=== PATIENT | male | born 1975 | race Caucasian/White ===

== ENCOUNTER 2018-06-21 21:04 | Emergency (ER) | payer MEDICAID, SELFPAY ==
[2018-06-21 21:07] VITALS: BP 140/92; PULSE 100; RESP 19; TEMP 36.7; O2SAT 98; BMI 27.9
--- NOTE | 2018-06-21 22:18 | ED.VIS.GEN ---
History of Present Illness Chief Complaint: Eye Problem Informant: Patient Onset: Today - JPTA Context: Sudden Onset - while sitting at the library Quality: pain, foreign body sensation Location: left eye Current Severity: Moderate Maximum Severity: Moderate Worsened by: nothing Relieved by: nothing Associated Symptoms: watering, making vision seem a little blurry Narrative: Patient wears glasses but no contacts. Unknown etiology of this as it occurred suddenly while he was sitting in a library. Past Medical History - Allergies and Home Meds Allergies/Adverse Reactions: Allergies No Known Allergies Allergy (Verified 06/21/18 21:05) Primary Care Physician: Josh Harrell MD [STAFF PHYSICIAN] - As Needed Past Medical History: None Smoking Status: Never smoker Drugs: None Review of Systems General: Denies: Chills, Fever Eyes: Reports: - - Left eye pain and watering. Denies: Diplopia Cardiovascular: Denies: Chest pain, Palpitations Respiratory: Denies: Dyspnea, Cough Gastrointestinal: Denies: Nausea, Vomiting Physical Exam Vital Signs/Narrative: Vital Signs Temp Pulse Resp BP Pulse Ox 06/21/18 21:07 98.1 F 100 19 H 140/92 H 98 Inital Vital Signs reviewed: Yes General: Well nourished, Well developed Head: Normocephalic, Atraumatic Eyes: Perrl, EOMI, - - Grossly visible small foreign body on the left temporal conjunctiva. Cornea examined with slit lamp. Anterior chamber is deep and quiet with no cell or flare. No hyphema or hypopyon. No corneal dye uptake. Skin: Normal color, No rash Neurological: Alert, Oriented x3, Cranial nerves II-XII grossly intact, Normal Strength, Normal Sensation Psychological: Normal affect Diagnostic/Tx/Re-eval - Medical Decision Making After tetracaine topically, his discomfort temporarily resolved. This facilitated FB removal easily. After removing the small FB, slit lamp exam was performed and shows no streaming of dye, no resid FB, and no corneal dye uptake. Procedures Procedure(s): left eye FB removal -- gently removed FB from surface of left eye conjunctiva w/ cotton-tipped swab. small area of associated dye uptake on reevaluation, neg Linda sign. ED Disposition - Plan for ED Patient: Disposition: Home or Assisted Living Chief Complaint: Eye Problem Diagnosis: Foreign body of left eye Instructions: ED Eye Particle Conjunctiva FB Rslv, ED Eye Injury Corneal Abrasion Referrals: Josh Harrell MD [STAFF PHYSICIAN] - As Needed
[2018-06-21] MEDS: Fluorescein 1 MG STRIP 1 STRIP LEFT EYE (22:38)
[2018-06-21] MEDS: Tetracaine 0.5% Ophthalmic Bottle 1 DRP LEFT EYE (22:39)
--- OUTSIDE RECORDS SUMMARY | 2018-08-26 17:18 | XMS RPT_ITS ---
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 Neuropathy of Left Upper Extremity Neuropathy, Ulnar At Elbow, Left Carpal Tunnel Syndrome, Left Current Outpatient Prescriptions: insulin glargine (BASAGLAR KWIKPEN U-100 INSULIN) 100 unit/mL (3 mL) inpn Inject 35 Units subcutaneously daily at bedtime. Disp: 5 Pen Rfl: 5 blood sugar diagnostic (TRUE METRIX GLUCOSE TEST STRIP) test strip Use as instructed DX:E10.40 Disp: 450 Strip Rfl: 3 UNIFINE PENTIPS 31 gauge x 3/16 ndle USE TO INJECT INSULIN FIVE TIMES DAILY Disp: 100 Each Rfl: 11 oxaprozin (DAYPRO) 600 mg tablet Take 2 tablets by mouth once daily. Disp: 60 tablet Rfl: 2 insulin aspart (NOVOLOG FLEXPEN) 100 unit/mL inpn INJECT 15 UNITS SUBCUTANEOUSLY THREE TIMES DAILY WITH MEALS/DIAGNOSIS CODE E10.40 (Patient taking differently: INJECT 15 UNITS SUBCUTANEOUSLY THREE TIMES DAILY WITH MEALS/DIAGNOSIS CODE E10.40 SLIDING SCALE. ) Disp: 5 Pen Rfl: 5 atenolol (TENORMIN) 25 mg tablet Take 1 tablet by mouth once daily. Disp: 90 tablet Rfl: 3 ergocalciferol, vitamin D2, (DRISDOL) 50,000 unit capsule Take 1 capsule by mouth once each week. Disp: 12 capsule Rfl: 3 MAGNESIUM ORAL Take 1 tablet by mouth once daily. Disp: Rfl: CALCIUM CARBONATE/VITAMIN D3 (CALCIUM 500 + D, D3, ORAL) Take 1 tablet by mouth once daily. Disp: Rfl: MULTIVITAMIN (DAILY VITAMIN ORAL) Take 1 tablet by mouth once daily. Disp: Rfl: Fish Oil-[place]-3 Fatty Acids (FISH OIL OMEGA 3-6-9) 300-1,000 mg cpDR Taking 2,000 mg daily. (Patient taking differently: Taking 1,000 mg daily.) Disp: Rfl: 0 flash glucose scanning reader ([employer] RY READER) misc Tests sugar six times a day. Disp: 1 Each Rfl: 0 flash glucose sensor (FREESTYLE RY SENSOR) kit Tests six times a day Disp: 1 Kit Rfl: 11 Blood-Glucose Meter monitoring kit Glucose Meter of Choice - Kit - Dx: Type 1 DM - Controlled E10.9 Disp: 1 Each Rfl: 0 Lancets lancets Test blood sugar(s) 6 times daily. Dx: Type 1 DM - Controlled E10.9 Insulin: Yes Disp: 100 Each Rfl: 11 No current facility-administered medications for this visit. DTAP,TDAP,TD(1 - Tdap) due on 1992 INFLUENZA(1) due on 02/04/2018 EXAM: BP 130/80 Pulse 88 Temp (!) 35.6 ?C (96 ?F) (Tympanic) Wt 93.9 kg (207 lb) SpO2 (!) 16% BMI 26.58 kg/m? Pleasant adult man in no acute distress. Alert and oriented all spheres. Normal affect and cognition. Speech normal. No deficits to learning or comprehension. Skin warm, dry, pink to lips and nailbeds. Normal turgor. Respirations regular and unlabored. Chest CTA. HRRR without murmur or gallop. Extrem: no clubbing, cyanosis, edema. Extremities are warm and pink with prompt capillary refill. Right middle toe nail with partial avulsion, loose. Mild swelling tip of toe. No erythema or streaks. High arches., tender over right 3rd MT plantar. ASSESSMENT/PLAN: 1. Avulsion of toenail, initial encounter - ICD9: 893.0, ICD10: S91.209A (primary diagnosis) Dressing applied. Use nail japanese, super-glue to keep nail from catching on sock. Notify is signs of infection immediately. 2. Type 1 diabetes, uncontrolled, with neuropathy (HCC) - ICD9: 250.63, 357.2, ICD10: E10.40, E10.65 Controlled. - Continue current medications 3. Diabetic polyneuropathy associated with type 1 diabetes mellitus (HCC) - ICD9: 250.61, 357.2, ICD10: E10.42 Controlled. - Continue current medications 4. Chronic toe pain, right foot - ICD9: 729.5, 338.29, ICD10: M79.674, G89.29 Discussed podiatry referral. Recommend metatarsal padding. F/U after labs in mid March. Mina Bang PA-C CNOV Observed: 02/23/2018 Status: COMPLETED Source: [place] 9:40 AM [facility] REPOSITORY Office Visit (FAMPWS) SANDEEP BRIONES ([id number]) 1975 M [facility] Date Time Provider Department 02/23/18 9:40 AM Mina BANG) FAMPWS During your visit today, we recorded the following information about you: Temperature Pulse Blood pressure Weight 96 degrees 88/minute 130/80 93.9 kg Mina Bang PA-C 02/23/2018 1:45 PM Signed 42 year old male with c/o 1. Partial avulsion right middle toe putting on sock yesterday. Painful at nail base, loose. Chronic pain in this toe r/t fx 2016. Hurts over MT head plantar aspect. 2. Recurrent back pain. Oxaprozin helps but still has pain. Very difficult to bend forward. Did not get scheduled with PT last visit. 3. Social issues: loss of home. Because of dogs he is unwilling to surrender can't get housing. Charges of meth use caused daughter to be taken out of home. States all false. Mood low as a result. 4. DM2: home sugars running in mid to low hundreds. Compliant with meds. HISTORIES FAMILY HISTORY Problem Relation Age of Onset - other (unknown) Other mother adopted - None Mother - None Father - No Ocular Disease No Family History PAST MEDICAL HISTORY Diagnosis Date - Cellulitis and abscess of hand, except fingers and thumb 05/2004 Curaneous erupting vesicles bilaterally. - Diabetic neuropathy (HCC) - MRSA (methicillin resistant staph aureus) culture positive 2012 In left fifth finger. - Pancreatitis - Sleep apnea underwent surgery - Tachycardia - Type 1 diabetes mellitus (HCC) 12/1994 - Ulcer of lower limb, unspecified 12/1994 Abcess which became ulcerative lesion. 6 months to heal completely. PAST SURGICAL HISTORY Procedure Laterality Date - APPENDECTOMY - HERNIA REPAIR HX Right inguinal - LAPAROSCOPIC CHOLEYCYSTECTOMY 2017 Cholecystectomy, lap - OTHER [id number] surgery for sleep apnea Social History Marital status: Spouse name: Years of education: Number of children: 4 Occupational History Occupation Employer Comment technical support [employer]* Social History Main Topics Smoking status: Former Smoker Packs/day: 2.00 Years: 17.00 Types: Cigarettes Quit date: 06/13/2016 Smokeless tobacco: Current User Types: Chew Comment: nicotine gum Alcohol use: Yes Comment: Very seldom Drug use: No Sexual activity: Yes Social History Narrative 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 Lives one hour from [place]. Two biological kids 13 and 7. Two step-kids 22 and 20. ACTIVE PROBLEM LIST Impotence of Organic Origin Hearing Loss Vertigo Gerd (Gastroesophageal Reflux Disease) Pure Hyperglyceridemia Lesion of Sciatic Nerve Brachial Neuritis Or Radiculitis NOS Adjustment Disorder Dysthymia Type 1 Diabetes, Uncontrolled, With Neuropathy (Hcc) Positive TB Test Diabetic Polyneuropathy Associated With Type 1 Diabetes Mellitus (Hcc) Carpal Tunnel Syndrome, Bilateral Ulnar Neuropathy of Left Upper Extremity Neuropathy, Ulnar At Elbow, Left Carpal Tunnel Syndrome, Left Current Outpatient Prescriptions: insulin glargine (BASAGLAR KWIKPEN U-100 INSULIN) 100 unit/mL (3 mL) inpn Inject 35 Units subcutaneously daily at bedtime. Disp: 5 Pen Rfl: 5 blood sugar diagnostic (TRUE METRIX GLUCOSE TEST STRIP) test strip Use as instructed DX:E10.40 Disp: 450 Strip Rfl: 3 UNIFINE PENTIPS 31 gauge x 3/16 ndle USE TO INJECT INSULIN FIVE TIMES DAILY Disp: 100 Each Rfl: 11 oxaprozin (DAYPRO) 600 mg tablet Take 2 tablets by mouth once daily. Disp: 60 tablet Rfl: 2 insulin aspart (NOVOLOG FLEXPEN) 100 unit/mL inpn INJECT 15 UNITS SUBCUTANEOUSLY THREE TIMES DAILY WITH MEALS/DIAGNOSIS CODE E10.40 (Patient taking differently: INJECT 15 UNITS SUBCUTANEOUSLY THREE TIMES DAILY WITH MEALS/DIAGNOSIS CODE E10.40 SLIDING SCALE. ) Disp: 5 Pen Rfl: 5 atenolol (TENORMIN) 25 mg tablet Take 1 tablet by mouth once daily. Disp: 90 tablet Rfl: 3 ergocalciferol, vitamin D2, (DRISDOL) 50,000 unit capsule Take 1 capsule by mouth once each week. Disp: 12 capsule Rfl: 3 MAGNESIUM ORAL Take 1 tablet by mouth once daily. Disp: Rfl: CALCIUM CARBONATE/VITAMIN D3 (CALCIUM 500 + D, D3, ORAL) Take 1 tablet by mouth once daily. Disp: Rfl: MULTIVITAMIN (DAILY VITAMIN ORAL) Take 1 tablet by mouth once daily. Disp: Rfl: Fish Oil-[place]-3 Fatty Acids (FISH OIL OMEGA 3-6-9) 300-1,000 mg cpDR Taking 2,000 mg daily. (Patient taking differently: Taking 1,000 mg daily.) Disp: Rfl: 0 flash glucose scanning reader (FREESTYLE RY READER) misc Tests sugar six times a day. Disp: 1 Each Rfl: 0 flash glucose sensor (FREESTYLE RY SENSOR) kit Tests six times a day Disp: 1 Kit Rfl: 11 Blood-Glucose Meter monitoring kit Glucose Meter of Choice - Kit - Dx: Type 1 DM - Controlled E10.9 Disp: 1 Each Rfl: 0 Lancets lancets Test blood sugar(s) 6 times daily. Dx: Type 1 DM - Controlled E10.9 Insulin: Yes Disp: 100 Each Rfl: 11 No current facility-administered medications for this visit. DTAP,TDAP,TD(1 - Tdap) due on 1992 INFLUENZA(1) due on 02/04/2018 EXAM: BP 130/80 Pulse 88 Temp (!) 35.6 ?C (96 ?F) (Tympanic) Wt 93.9 kg (207 lb) SpO2 (!) 16% BMI 26.58 kg/m? Pleasant adult man in no acute distress. Alert and oriented all spheres. Normal affect and cognition. Speech normal. No deficits to learning or comprehension. Skin warm, dry, pink to lips and nailbeds. Normal turgor. Respirations regular and unlabored. Chest CTA. HRRR without murmur or gallop. Extrem: no clubbing, cyanosis, edema. Extremities are warm and pink with prompt capillary refill. Right middle toe nail with partial avulsion, loose. Mild swelling tip of toe. No erythema or streaks. High arches., tender over right 3rd MT plantar. ASSESSMENT/PLAN: 1. Avulsion of toenail, initial encounter - ICD9: 893.0, ICD10: S91.209A (primary diagnosis) Dressing applied. Use nail japanese, super-glue to keep nail from catching on sock. Notify is signs of infection immediately. 2. Type 1 diabetes, uncontrolled, with neuropathy (HCC) - ICD9: 250.63, 357.2, ICD10: E10.40, E10.65 Controlled. - Continue current medications 3. Diabetic polyneuropathy associated with type 1 diabetes mellitus (HCC) - ICD9: 250.61, 357.2, ICD10: E10.42 Controlled. - Continue current medications 4. Chronic toe pain, right foot - ICD9: 729.5, 338.29, ICD10: M79.674, G89.29 Discussed podiatry referral. Recommend metatarsal padding. F/U after labs in mid March. M Dimas Bang PA-C Referring Provider: JORDI WEAVER [[id number]] Allergies As of Date: 02/23/2018 Noted Allergy Reaction GABAPENTIN 12/14/2017 5 - Intolerance Comments: Foggy, staggering, trouble thinking Date Reviewed: 02/23/2018 Reviewed by: Kimi Grider LPN - Fully Assessed Reason for Visit: Nail Check [[id number]] Cmt: ripped toenail right foot 3rd digit happened yesterday while putting boot on without socks Primary Visit Diagnosis:Avulsion of toenail, initial encounter [S91.209A] Other Visit Diagnoses:Type 1 diabetes, uncontrolled, with neuropathy (HCC) [E10.40, E10.65] Diabetic polyneuropathy associated with type 1 diabetes mellitus (HCC) [E10.42] Chronic toe pain, right foot [M79.674, G89.29] Order(s):insulin glargine (BASAGLAR KWIKPEN U-100 INSULIN) 100 unit/mL (3 mL) inpnInject 35 Units subcutaneously daily at bedtime.Disp: 5 PenRfl: 5 blood sugar diagnostic (TRUE METRIX GLUCOSE TEST STRIP) test stripUse as instructed DX:E10.40Disp: 450 StripRfl: 3 Prescriptions as of 02/23/2018 Sig: UNIFINE PENTIPS 31 GAUGE X 3/* USE TO INJECT INSULIN FIVE TI* OXAPROZIN 600 MG TABLET Take 2 tablets by mouth once * INSULIN ASPART U-100 100 UNI* INJECT 15 UNITS SUBCUTANEOUSL* Patient taking differently: INJECT 15 UNITS SUBCUTANEOUSL* ATENOLOL 25 MG TABLET Take 1 tablet by mouth once d* ERGOCALCIFEROL (VITAMIN D2) 5* Take 1 capsule by mouth once * MAGNESIUM ORAL Take 1 tablet by mouth once d* CALCIUM 500 + D (D3) ORAL Take 1 tablet by mouth once d* DAILY VITAMIN ORAL Take 1 tablet by mouth once d* OMEGA-3 FATTY ACIDS-FISH OIL * Taking 2,000 mg daily. Patient taking differently: Taking 1,000 mg daily. INSULIN GLARGINE (U-100) 100 * Inject 35 Units subcutaneousl* BLOOD SUGAR DIAGNOSTIC STRIPS Use as instructed DX:E10.40 FLASH GLUCOSE SCANNING READER Tests sugar six times a day. FLASH GLUCOSE SENSOR KIT Tests six times a day BLOOD-GLUCOSE METER KIT Glucose Meter of Choice - Kit* LANCETS Test blood sugar(s) 6 times d* Problem List As Of Date 02/23/2018 Noted Resolved Diabetes mellitus type 2, uncontrolled, without*INVALID FOR*07/07/2015 IMPOTENCE, ORGANIC ORIGN [N52.9] INVALID FOR* Hypoglycemia associated with diabetes (HCC) [E1*INVALID FOR*06/30/2017 Hearing loss [H91.90] INVALID FOR* Dizziness [R42] INVALID FOR*08/18/2016 Vertigo [R42] INVALID FOR* GERD (gastroesophageal reflux disease) [K21.9] INVALID FOR* Pure hyperglyceridemia [E78.1] INVALID FOR* Lesion of sciatic nerve [G57.00] INVALID FOR* Brachial neuritis or radiculitis NOS [M54.12] INVALID FOR* More... Adjustment disorder [F43.20] INVALID FOR* Dysthymia [F34.1] INVALID FOR* Type 1 diabetes, uncontrolled, with neuropathy *INVALID FOR* Tachycardia [R00.0] INVALID FOR*08/18/2016 ELIZABETH (obstructive sleep apnea) [G47.33] INVALID FOR*06/30/2017 Chest pain [R07.9] INVALID FOR*08/18/2016 Gallstones [K80.20] INVALID FOR*10/01/2016 Positive TB test [R76.11] INVALID FOR* Diabetic polyneuropathy associated with type 1 *INVALID FOR* More... Carpal tunnel syndrome, bilateral [G56.03] INVALID FOR* More... Ulnar neuropathy of left upper extremity [G56.2*INVALID FOR* Neuropathy, ulnar at elbow, left [G56.22] INVALID FOR* More... Carpal tunnel syndrome, left [G56.02] INVALID FOR* More... Prescriptions ordered this encounter Disp Refills Start End INSULIN GLARGINE (U-100) 100 UNIT/ML* 5 Pen 5 02/23/2018 Route: SUBCUTANEOUS Sig: Inject 35 Units subcutaneously daily at bedtime. BLOOD SUGAR DIAGNOSTIC STRIPS 450 * 3 02/23/2018 Sig: Use as instructed DX:E10.40 Medications Discontinued During This Encounter cephALEXin (KEFLEX) 500 mg capsule 21 c* 0 02/14/2018 02/23/2018 Route: ORAL Sig: Take 1 capsule by mouth three times daily. Disc: Reason for discontinue is not on file. insulin glargine (BASAGLAR KWIKPEN U* 5 Pen 5 02/20/2018 02/23/2018 Route: SUBCUTANEOUS Sig: Inject 35 Units subcutaneously daily at bedtime. Disc: Reason for discontinue is not on file. blood sugar diagnostic (TRUE METRIX * 450 * 3 02/20/2018 02/23/2018 Sig: Use as instructed DX:E10.40 Disc: Reason for discontinue is not on file. Encounter Status:Closed by Mina BANG PA-C on 02/23/18 PROGRESS Observed: 02/14/2018 Status: COMPLETED Source: [place] 2:00 PM [facility] REPOSITORY HNO ID: [id number] Author: Lou Wyatt Service: (none) Author Type: Nurse Practitioner Type: Progress Notes Filed: 02/14/2018 2:19 PM Note Text: This is a 42 year old male who presents today with: Patient presents with: Recheck: bumps in left under arm X 2 days- painful HISTORY OF PRESENT ILLNESS: Sandeep Briones is a 42 year old male. Patient presents with: Recheck: bumps in left under arm X 2 days- painful Refers a couple of weeks ago, had painful lumps develop under his right armpit. He popped them and they went away. Refers that 48 hours ago, he had them return under the left armpit. Not doing anything for them. Painful. Not draining. No fevers/chills. Besides a couple of weeks ago, hasn't had anything like this before. PAST MEDICAL HISTORY: PAST MEDICAL HISTORY Diagnosis Date - Cellulitis and abscess of hand, except fingers and thumb 05/2004 Curaneous erupting vesicles bilaterally. - Diabetic neuropathy (HCC) - MRSA (methicillin resistant staph aureus) culture positive 2012 In left fifth finger. - Pancreatitis - Sleep apnea underwent surgery - Tachycardia - Type 1 diabetes mellitus (HCC) 12/1994 - Ulcer of lower limb, unspecified 12/1994 Abcess which became ulcerative lesion. 6 months to heal completely. PAST SURGICAL HISTORY Procedure Laterality Date - APPENDECTOMY - HERNIA REPAIR HX Right inguinal - LAPAROSCOPIC CHOLEYCYSTECTOMY 2017 Cholecystectomy, lap - OTHER [id number] surgery for sleep apnea ALLERGIES Gabapentin MEDICATIONS Current Outpatient Prescriptions: flash glucose scanning reader (FREESTYLE RY READER) misc Tests sugar six times a day. flash glucose sensor (FREESTYLE RY SENSOR) kit Tests six times a day UNIFINE PENTIPS 31 gauge x 3/16 ndle USE TO INJECT INSULIN FIVE TIMES DAILY Blood-Glucose Meter monitoring kit Glucose Meter of Choice - Kit - Dx: Type 1 DM - Controlled E10.9 clindamycin (CLEOCIN) 150 mg capsule Take 1 capsule by mouth four times daily. oxaprozin (DAYPRO) 600 mg tablet Take 2 tablets by mouth once daily. insulin aspart (NOVOLOG FLEXPEN) 100 unit/mL inpn INJECT 15 UNITS SUBCUTANEOUSLY THREE TIMES DAILY WITH MEALS/DIAGNOSIS CODE E10.40 (Patient taking differently: INJECT 15 UNITS SUBCUTANEOUSLY THREE TIMES DAILY WITH MEALS/DIAGNOSIS CODE E10.40 SLIDING SCALE. ) insulin glargine (BASAGLAR KWIKPEN) 100 unit/mL (3 mL) inpn Inject 35 Units subcutaneously daily at bedtime. atenolol (TENORMIN) 25 mg tablet Take 1 tablet by mouth once daily. ergocalciferol, vitamin D2, (DRISDOL) 50,000 unit capsule Take 1 capsule by mouth once each week. Lancets lancets Test blood sugar(s) 6 times daily. Dx: Type 1 DM - Controlled E10.9 Insulin: Yes blood sugar diagnostic (BLOOD GLUCOSE TEST) test strip Test blood sugar(s) 6 times daily. Dx: Type 1 DM - Controlled E10.9 Insulin: Yes MAGNESIUM ORAL Take 1 tablet by mouth once daily. CALCIUM CARBONATE/VITAMIN D3 (CALCIUM 500 + D, D3, ORAL) Take 1 tablet by mouth once daily. MULTIVITAMIN (DAILY VITAMIN ORAL) Take 1 tablet by mouth once daily. Fish Oil-[place]-3 Fatty Acids (FISH OIL OMEGA 3-6-9) 300-1,000 mg cpDR Taking 2,000 mg daily. (Patient taking differently: Taking 1,000 mg daily.) No current facility-administered medications for this visit. 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 Lives one hour from [place]. Two biological kids 13 and 7. Two step-kids 22 and 20. EXAM: BP 140/86 (BP Site: Right Arm, BP Position: Sitting, BP Cuff Size: Regular Adult) Pulse 76 Resp 12 Wt 97.1 kg (214 lb) BMI 27.48 kg/m? PHYSICAL EXAM: General Appearance: Well appearing, alert, in no acute distress, well-hydrated, well nourished.. Skin: two small furuncles in the left axilla. Not angry. Head: Normocephalic, no masses, lesions, tenderness or abnormalities. Eyes: Anicteric sclera. Extraocular movements are intact. Lungs: Lungs clear to auscultation. No wheezing, rhonchi, rales. Heart: RRR without murmur, gallop, or rubs. No ectopy. Neurologic: Gait normal. ASSESSMENT/PLAN: 1. Boil - ICD9: 680.9, ICD10: L02.92 Hot compresses -- 4 times daily. Start cephalexin. If worsening or no improvement, return/notify provider. - CEPHALEXIN 500 MG CAPSULE Discussed treatment plan and patient voices understanding. Patient's questions answered appropriately. Medications and potential side effects were discussed and patient voices understanding. Return to the office as scheduled or as needed for worsening/no improvement. Lou Wyatt APRN.CNP CNOV Observed: 02/14/2018 Status: COMPLETED Source: [place] 2:00 PM [facility] REPOSITORY Office Visit (FAMPWS) SANDEEP BRIONES ([id number]) 1975 M [facility] Date Time Provider Department 02/14/18 2:00 PM LOU WYATT (SHENG) FAMPWS During your visit today, we recorded the following information about you: Pulse Respiration Blood pressure Weight 76/minute 12/minute 140/86 97.1 kg Lou Wyatt APRN.CNP 02/14/2018 2:19 PM Signed This is a 42 year old male who presents today with: Patient presents with: Recheck: bumps in left under arm X 2 days- painful HISTORY OF PRESENT ILLNESS: Sandeep Briones is a 42 year old male. Patient presents with: Recheck: bumps in left under arm X 2 days- painful Refers a couple of weeks ago, had painful lumps develop under his right armpit. He popped them and they went away. Refers that 48 hours ago, he had them return under the left armpit. Not doing anything for them. Painful. Not draining. No fevers/chills. Besides a couple of weeks ago, hasn't had anything like this before. PAST MEDICAL HISTORY: PAST MEDICAL HISTORY Diagnosis Date - Cellulitis and abscess of hand, except fingers and thumb 05/2004 Curaneous erupting vesicles bilaterally. - Diabetic neuropathy (HCC) - MRSA (methicillin resistant staph aureus) culture positive 2012 In left fifth finger. - Pancreatitis - Sleep apnea underwent surgery - Tachycardia - Type 1 diabetes mellitus (HCC) 12/1994 - Ulcer of lower limb, unspecified 12/1994 Abcess which became ulcerative lesion. 6 months to heal completely. PAST SURGICAL HISTORY Procedure Laterality Date - APPENDECTOMY - HERNIA REPAIR HX Right inguinal - LAPAROSCOPIC CHOLEYCYSTECTOMY 2017 Cholecystectomy, lap - OTHER [phone] surgery for sleep apnea ALLERGIES Gabapentin MEDICATIONS Current Outpatient Prescriptions: flash glucose scanning reader (FREESTYLE RY READER) misc Tests sugar six times a day. flash glucose sensor (FREESTYLE RY SENSOR) kit Tests six times a day UNIFINE PENTIPS 31 gauge x 3/16 ndle USE TO INJECT INSULIN FIVE TIMES DAILY Blood-Glucose Meter monitoring kit Glucose Meter of Choice - Kit - Dx: Type 1 DM - Controlled E10.9 clindamycin (CLEOCIN) 150 mg capsule Take 1 capsule by mouth four times daily. oxaprozin (DAYPRO) 600 mg tablet Take 2 tablets by mouth once daily. insulin aspart (NOVOLOG FLEXPEN) 100 unit/mL inpn INJECT 15 UNITS SUBCUTANEOUSLY THREE TIMES DAILY WITH MEALS/DIAGNOSIS CODE E10.40 (Patient taking differently: INJECT 15 UNITS SUBCUTANEOUSLY THREE TIMES DAILY WITH MEALS/DIAGNOSIS CODE E10.40 SLIDING SCALE. ) insulin glargine (BASAGLAR KWIKPEN) 100 unit/mL (3 mL) inpn Inject 35 Units subcutaneously daily at bedtime. atenolol (TENORMIN) 25 mg tablet Take 1 tablet by mouth once daily. ergocalciferol, vitamin D2, (DRISDOL) 50,000 unit capsule Take 1 capsule by mouth once each week. Lancets lancets Test blood sugar(s) 6 times daily. Dx: Type 1 DM - Controlled E10.9 Insulin: Yes blood sugar diagnostic (BLOOD GLUCOSE TEST) test strip Test blood sugar(s) 6 times daily. Dx: Type 1 DM - Controlled E10.9 Insulin: Yes MAGNESIUM ORAL Take 1 tablet by mouth once daily. CALCIUM CARBONATE/VITAMIN D3 (CALCIUM 500 + D, D3, ORAL) Take 1 tablet by mouth once daily. MULTIVITAMIN (DAILY VITAMIN ORAL) Take 1 tablet by mouth once daily. Fish Oil-[place]-3 Fatty Acids (FISH OIL OMEGA 3-6-9) 300-1,000 mg cpDR Taking 2,000 mg daily. (Patient taking differently: Taking 1,000 mg daily.) No current facility-administered medications for this visit. 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 Lives one hour from [place]. Two biological kids 13 and 7. Two step-kids 22 and 20. EXAM: BP 140/86 (BP Site: Right Arm, BP Position: Sitting, BP Cuff Size: Regular Adult) Pulse 76 Resp 12 Wt 97.1 kg (214 lb) BMI 27.48 kg/m? PHYSICAL EXAM: General Appearance: Well appearing, alert, in no acute distress, well-hydrated, well nourished.. Skin: two small furuncles in the left axilla. Not angry. Head: Normocephalic, no masses, lesions, tenderness or abnormalities. Eyes: Anicteric sclera. Extraocular movements are intact. Lungs: Lungs clear to auscultation. No wheezing, rhonchi, rales. Heart: RRR without murmur, gallop, or rubs. No ectopy. Neurologic: Gait normal. ASSESSMENT/PLAN: 1. Boil - ICD9: 680.9, ICD10: L02.92 Hot compresses -- 4 times daily. Start cephalexin. If worsening or no improvement, return/notify provider. - CEPHALEXIN 500 MG CAPSULE Discussed treatment plan and patient voices understanding. Patient's questions answered appropriately. Medications and potential side effects were discussed and patient voices understanding. Return to the office as scheduled or as needed for worsening/no improvement. Lou Wyatt APRN.SHENG Wyatt APRN.SHENG 02/14/2018 2:12 PM Signed 1. Start the keflex (cephalexin -- one pill by mouth three times daily). 2. Hot compresses (hot washcloth) 4 times a day. (hot, but not hot enough to burn). 3. If anything is worsening, or not improving, please let us know. 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 FLASH GLUCOSE SENSOR KIT Tests six times a day UNIFINE PENTIPS 31 GAUGE X 3/* USE TO INJECT INSULIN FIVE TI* BLOOD-GLUCOSE METER KIT Glucose Meter of Choice - Kit* OXAPROZIN 600 MG TABLET Take 2 tablets by mouth once * INSULIN ASPART U-100 100 UNI* INJECT 15 UNITS SUBCUTANEOUSL* Patient taking differently: INJECT 15 UNITS SUBCUTANEOUSL* INSULIN GLARGINE (U-100) 100 * Inject 35 Units subcutaneousl* ATENOLOL 25 MG TABLET Take 1 tablet by mouth once d* ERGOCALCIFEROL (VITAMIN D2) 5* Take 1 capsule by mouth once * LANCETS Test blood sugar(s) 6 times d* BLOOD SUGAR DIAGNOSTIC STRIPS Test blood sugar(s) 6 times d* MAGNESIUM ORAL Take 1 tablet by mouth once d* CALCIUM 500 + D (D3) ORAL Take 1 tablet by mouth once d* DAILY VITAMIN ORAL Take 1 tablet by mouth once d* OMEGA-3 FATTY ACIDS-FISH OIL * Taking 2,000 mg daily. Patient taking differently: Taking 1,000 mg daily. CEPHALEXIN 500 MG CAPSULE Take 1 capsule by mouth three* Problem List As Of Date 02/14/2018 Noted Resolved Diabetes mellitus type 2, uncontrolled, without*INVALID FOR*07/07/2015 IMPOTENCE, ORGANIC ORIGN [N52.9] INVALID FOR* Hypoglycemia associated with diabetes (HCC) [E1*INVALID FOR*06/30/2017 Hearing loss [H91.90] INVALID FOR* Dizziness [R42] INVALID FOR*08/18/2016 Vertigo [R42] INVALID FOR* GERD (gastroesophageal reflux disease) [K21.9] INVALID FOR* Pure hyperglyceridemia [E78.1] INVALID FOR* Lesion of sciatic nerve [G57.00] INVALID FOR* Brachial neuritis or radiculitis NOS [M54.12] INVALID FOR* More... Adjustment disorder [F43.20] INVALID FOR* Dysthymia [F34.1] INVALID FOR* Type 1 diabetes, uncontrolled, with neuropathy *INVALID FOR* Tachycardia [R00.0] INVALID FOR*08/18/2016 ELIZABETH (obstructive sleep apnea) [G47.33] INVALID FOR*06/30/2017 Chest pain [R07.9] INVALID FOR*08/18/2016 Gallstones [K80.20] INVALID FOR*10/01/2016 Positive TB test [R76.11] INVALID FOR* Diabetic polyneuropathy associated with type 1 *INVALID FOR* More... Carpal tunnel syndrome, bilateral [G56.03] INVALID FOR* More... Ulnar neuropathy of left upper extremity [G56.2*INVALID FOR* Neuropathy, ulnar at elbow, left [G56.22] INVALID FOR* More... Carpal tunnel syndrome, left [G56.02] INVALID FOR* More... Other instructions from your clinician: 1. Start the keflex (cephalexin -- one pill by mouth three times daily). 2. Hot compresses (hot washcloth) 4 times a day. (hot, but not hot enough to burn). 3. If anything is worsening, or not improving, please let us know. Prescriptions ordered this encounter Disp Refills Start End CEPHALEXIN 500 MG CAPSULE 21 c* 0 02/14/2018 Route: ORAL Sig: Take 1 capsule by mouth three times daily. Medications Discontinued During This Encounter clindamycin (CLEOCIN) 150 mg capsule 40 c* 0 12/30/2017 02/14/2018 Route: ORAL Sig: Take 1 capsule by mouth four times daily. Disc: Course of therapy completed Encounter Status:Closed by LOU WYATT CNP on 02/14/18 PROGRESS Observed: 01/25/2018 Status: COMPLETED Source: [place] 1:57 PM [facility] REPOSITORY O ID: [id number] Author: Jordi Weaver Service: (none) Author Type: Physician Type: Progress Notes Filed: 01/25/2018 2:17 PM Note Text: Patient presents with: Diabetes HPI: Patient presents today for office visit for follow up. Discussed that he had a trace positive drug test for amphetamine in his urine. He denies adamantly using any such medications. A literature search does show his atenolol would be a common false positive for this medication. A letter written to this affect was given. Sugars have been a little better. Depends on his stress level. They are slowly improving. No hypoglycemic spell. We discussed having a continuous glucose monitor. Using daypro for neuropathy. Pain is still significant. MEDICATIONS: Current Outpatient Prescriptions: oxaprozin (DAYPRO) 600 mg tablet Take 2 tablets by mouth once daily. insulin aspart (NOVOLOG FLEXPEN) 100 unit/mL inpn INJECT 15 UNITS SUBCUTANEOUSLY THREE TIMES DAILY WITH MEALS/DIAGNOSIS CODE E10.40 (Patient taking differently: INJECT 15 UNITS SUBCUTANEOUSLY THREE TIMES DAILY WITH MEALS/DIAGNOSIS CODE E10.40 SLIDING SCALE. ) insulin glargine (BASAGLAR KWIKPEN) 100 unit/mL (3 mL) inpn Inject 35 Units subcutaneously daily at bedtime. atenolol (TENORMIN) 25 mg tablet Take 1 tablet by mouth once daily. ergocalciferol, vitamin D2, (DRISDOL) 50,000 unit capsule Take 1 capsule by mouth once each week. MAGNESIUM ORAL Take 1 tablet by mouth once daily. CALCIUM CARBONATE/VITAMIN D3 (CALCIUM 500 + D, D3, ORAL) Take 1 tablet by mouth once daily. MULTIVITAMIN (DAILY VITAMIN ORAL) Take 1 tablet by mouth once daily. Fish Oil-[place]-3 Fatty Acids (FISH OIL OMEGA 3-6-9) 300-1,000 mg cpDR Taking 2,000 mg daily. (Patient taking differently: Taking 1,000 mg daily.) UNIFINE PENTIPS 31 gauge x 3/16 ndle USE TO INJECT INSULIN FIVE TIMES DAILY Blood-Glucose Meter monitoring kit Glucose Meter of Choice - Kit - Dx: Type 1 DM - Controlled E10.9 clindamycin (CLEOCIN) 150 mg capsule Take 1 capsule by mouth four times daily. Lancets lancets Test blood sugar(s) 6 times daily. Dx: Type 1 DM - Controlled E10.9 Insulin: Yes blood sugar diagnostic (BLOOD GLUCOSE TEST) test strip Test blood sugar(s) 6 times daily. Dx: Type 1 DM - Controlled E10.9 Insulin: Yes No current facility-administered medications for this visit. ALLERGIES: ALLERGIES Allergen Reactions - Gabapentin Intolerance Foggy, staggering, trouble thinking PAST MEDICAL HISTORY Diagnosis Date - Cellulitis and abscess of hand, except fingers and thumb 05/2004 Curaneous erupting vesicles bilaterally. - Diabetic neuropathy (HCC) - MRSA (methicillin resistant staph aureus) culture positive 2012 In left fifth finger. - Pancreatitis - Sleep apnea underwent surgery - Tachycardia - Type 1 diabetes mellitus (HCC) 12/1994 - Ulcer of lower limb, unspecified 12/1994 Abcess which became ulcerative lesion. 6 months to heal completely. PAST SURGICAL HISTORY Procedure Laterality Date - APPENDECTOMY - HERNIA REPAIR HX Right inguinal - LAPAROSCOPIC CHOLEYCYSTECTOMY 2017 Cholecystectomy, lap - OTHER [id number] surgery for sleep apnea FAMILY HISTORY Problem Relation Age of Onset - other (unknown) Other mother adopted - None Mother - None Father - No Ocular Disease No Family History Social History Marital status: Spouse name: Years of education: Number of children: 4 Occupational History Occupation Employer Comment technical support [employer]* Social History Main Topics Smoking status: Former Smoker Packs/day: 2.00 Years: 17.00 Types: Cigarettes Quit date: 06/13/2016 Smokeless tobacco: Current User Types: Chew Comment: nicotine gum Alcohol use: Yes Comment: Very seldom Drug use: No Sexual activity: Yes Social History Narrative 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 Lives one hour from [place]. Two biological kids 13 and 7. Two step-kids 22 and 20. Reviewed current medications, allergies, past medical history, surgical history, family history and social history today. REVIEW OF SYSTEMS All other reviewed and negative other than HPI. HEALTH MAINTENANCE: Reviewed health maintenance issues today and recommended the following in detail. VITALS: BP 162/92 Pulse 88 Resp 18 Wt 95.3 kg (210 lb) BMI 26.96 kg/m? Last 4 Encounter Wt Readings: Date: Wt: 01/25/2018 95.3 kg (210 lb) 12/23/2017 88.4 kg (194 lb 12.8 oz) 12/14/2017 89.4 kg (197 lb) 06/30/2017 92.1 kg (203 lb) PHYSICAL EXAMINATION: General appearance: Well appearing, alert, in no acute distress, well-hydrated, well nourished. Skin: Skin color, texture, turgor normal, no suspicious rashes or lesions Lungs: Lungs clear to auscultation. No wheezing, rhonchi, rales Heart: RRR without murmur, gallop, or rubs. No ectopy Abdomen: Normal abdominal exam, Abdomen soft, non-tender. Bowel sounds normal. No masses, organomegaly Extremities: No deformities, edema, skin discoloration, clubbing or cyanosis. Good capillary refill. ASSESSMENT/PLAN: 1. Type 1 diabetes, uncontrolled, with neuropathy (HCC) - ICD9: 250.63, 357.2, ICD10: E10.40, E10.65 (primary diagnosis) - work on diet. Continue to follow. - FLASH GLUCOSE SCANNING READER - FLASH GLUCOSE SENSOR KIT - HGB A1C - COMP METABOLIC PANEL - LIPID PANEL BASIC 2. Tachycardia - ICD9: 785.0, ICD10: R00.0 - given info. He is on atenolol 3. Pure hyperglyceridemia - ICD9: 272.1, ICD10: E78.1 - LIPID PANEL BASIC Jordi Weaver MD RTO in Oct and prn. bp check in two weeks. CNOV Observed: 01/25/2018 Status: COMPLETED Source: [place] 1:40 PM [facility] REPOSITORY [facility] SANDEEP BRIONES ([id number]) 1975 M [facility] Date Time Provider Department 01/25/18 1:40 PM [facility] During your visit today, we recorded the following information about you: Pulse Respiration Blood pressure Weight 88/minute 18/minute 150/86 95.3 kg Jordi Weaver MD 01/25/2018 2:17 PM Signed Patient presents with: Diabetes HPI: Patient presents today for office visit for follow up. Discussed that he had a trace positive drug test for amphetamine in his urine. He denies adamantly using any such medications. A literature search does show his atenolol would be a common false positive for this medication. A letter written to this affect was given. Sugars have been a little better. Depends on his stress level. They are slowly improving. No hypoglycemic spell. We discussed having a continuous glucose monitor. Using daypro for neuropathy. Pain is still significant. MEDICATIONS: Current Outpatient Prescriptions: oxaprozin (DAYPRO) 600 mg tablet Take 2 tablets by mouth once daily. insulin aspart (NOVOLOG FLEXPEN) 100 unit/mL inpn INJECT 15 UNITS SUBCUTANEOUSLY THREE TIMES DAILY WITH MEALS/DIAGNOSIS CODE E10.40 (Patient taking differently: INJECT 15 UNITS SUBCUTANEOUSLY THREE TIMES DAILY WITH MEALS/DIAGNOSIS CODE E10.40 SLIDING SCALE. ) insulin glargine (BASAGLAR KWIKPEN) 100 unit/mL (3 mL) inpn Inject 35 Units subcutaneously daily at bedtime. atenolol (TENORMIN) 25 mg tablet Take 1 tablet by mouth once daily. ergocalciferol, vitamin D2, (DRISDOL) 50,000 unit capsule Take 1 capsule by mouth once each week. MAGNESIUM ORAL Take 1 tablet by mouth once daily. CALCIUM CARBONATE/VITAMIN D3 (CALCIUM 500 + D, D3, ORAL) Take 1 tablet by mouth once daily. MULTIVITAMIN (DAILY VITAMIN ORAL) Take 1 tablet by mouth once daily. Fish Oil-[place]-3 Fatty Acids (FISH OIL OMEGA 3-6-9) 300-1,000 mg cpDR Taking 2,000 mg daily. (Patient taking differently: Taking 1,000 mg daily.) UNIFINE PENTIPS 31 gauge x 3/16 ndle USE TO INJECT INSULIN FIVE TIMES DAILY Blood-Glucose Meter monitoring kit Glucose Meter of Choice - Kit - Dx: Type 1 DM - Controlled E10.9 clindamycin (CLEOCIN) 150 mg capsule Take 1 capsule by mouth four times daily. Lancets lancets Test blood sugar(s) 6 times daily. Dx: Type 1 DM - Controlled E10.9 Insulin: Yes blood sugar diagnostic (BLOOD GLUCOSE TEST) test strip Test blood sugar(s) 6 times daily. Dx: Type 1 DM - Controlled E10.9 Insulin: Yes No current facility-administered medications for this visit. ALLERGIES: ALLERGIES Allergen Reactions - Gabapentin Intolerance Foggy, staggering, trouble thinking PAST MEDICAL HISTORY Diagnosis Date - Cellulitis and abscess of hand, except fingers and thumb 05/2004 Curaneous erupting vesicles bilaterally. - Diabetic neuropathy (HCC) - MRSA (methicillin resistant staph aureus) culture positive 2012 In left fifth finger. - Pancreatitis - Sleep apnea underwent surgery - Tachycardia - Type 1 diabetes mellitus (HCC) 12/1994 - Ulcer of lower limb, unspecified 12/1994 Abcess which became ulcerative lesion. 6 months to heal completely. PAST SURGICAL HISTORY Procedure Laterality Date - APPENDECTOMY - HERNIA REPAIR HX Right inguinal - LAPAROSCOPIC CHOLEYCYSTECTOMY 2016 Cholecystectomy, lap - OTHER [id number] surgery for sleep apnea FAMILY HISTORY Problem Relation Age of Onset - other (unknown) Other mother adopted - None Mother - None Father - No Ocular Disease No Family History Social History Marital status: Spouse name: Years of education: Number of children: 4 Occupational History Occupation Employer Comment technical support [employer]* Social History Main Topics Smoking status: Former Smoker Packs/day: 2.00 Years: 17.00 Types: Cigarettes Quit date: 06/13/2016 Smokeless tobacco: Current User Types: Chew Comment: nicotine gum Alcohol use: Yes Comment: Very seldom Drug use: No Sexual activity: Yes Social History Narrative 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 Lives one hour from [place]. Two biological kids 13 and 7. Two step-kids 22 and 20. Reviewed current medications, allergies, past medical history, surgical history, family history and social history today. REVIEW OF SYSTEMS All other reviewed and negative other than HPI. HEALTH MAINTENANCE: Reviewed health maintenance issues today and recommended the following in detail. VITALS: BP 162/92 Pulse 88 Resp 18 Wt 95.3 kg (210 lb) BMI 26.96 kg/m? Last 4 Encounter Wt Readings: Date: Wt: 01/25/2018 95.3 kg (210 lb) 12/23/2017 88.4 kg (194 lb 12.8 oz) 12/14/2017 89.4 kg (197 lb) 06/30/2017 92.1 kg (203 lb) PHYSICAL EXAMINATION: General appearance: Well appearing, alert, in no acute distress, well-hydrated, well nourished. Skin: Skin color, texture, turgor normal, no suspicious rashes or lesions Lungs: Lungs clear to auscultation. No wheezing, rhonchi, rales Heart: RRR without murmur, gallop, or rubs. No ectopy Abdomen: Normal abdominal exam, Abdomen soft, non-tender. Bowel sounds normal. No masses, organomegaly Extremities: No deformities, edema, skin discoloration, clubbing or cyanosis. Good capillary refill. ASSESSMENT/PLAN: 1. Type 1 diabetes, uncontrolled, with neuropathy (HCC) - ICD9: 250.63, 357.2, ICD10: E10.40, E10.65 (primary diagnosis) - work on diet. Continue to follow. - FLASH GLUCOSE SCANNING READER - FLASH GLUCOSE SENSOR KIT - HGB A1C - COMP METABOLIC PANEL - LIPID PANEL BASIC 2. Tachycardia - ICD9: 785.0, ICD10: R00.0 - given info. He is on atenolol 3. Pure hyperglyceridemia - ICD9: 272.1, ICD10: E78.1 - LIPID PANEL BASIC Jordi Weaver MD RTO in Oct and prn. bp check in two weeks. Referring Provider: SELF [200] Allergies As of Date: 01/25/2018 Noted Allergy Reaction GABAPENTIN 12/14/2017 5 - Intolerance Comments: Foggy, staggering, trouble thinking Date Reviewed: 01/25/2018 Reviewed by: Avani Chavira LPN - Fully Assessed Reason for Visit: Diabetes [34] Primary Visit Diagnosis:Type 1 diabetes, uncontrolled, with neuropathy (HCC) [E10.40, E10.65] Other Visit Diagnoses:Tachycardia [R00.0] Pure hyperglyceridemia [E78.1] Order(s):flash glucose scanning reader (FREESTYLE RY READER) miscTests sugar six times a day.Disp: 1 EachRfl: 0 flash glucose sensor (FREESTYLE RY SENSOR) kitTests six times a dayDisp: 1 KitRfl: 11 HGB A1C [[id number]] Order #: [id number] FUTURE COMP METABOLIC PANEL [SQCMP] Order #: [id number] FUTURE LIPID PANEL BASIC [SQLIPB] Order #: [id number] FUTURE Prescriptions as of 01/25/2018 Sig: OXAPROZIN 600 MG TABLET Take 2 tablets by mouth once * INSULIN ASPART U-100 100 UNI* INJECT 15 UNITS SUBCUTANEOUSL* Patient taking differently: INJECT 15 UNITS SUBCUTANEOUSL* INSULIN GLARGINE (U-100) 100 * Inject 35 Units subcutaneousl* ATENOLOL 25 MG TABLET Take 1 tablet by mouth once d* ERGOCALCIFEROL (VITAMIN D2) 5* Take 1 capsule by mouth once * MAGNESIUM ORAL Take 1 tablet by mouth once d* CALCIUM 500 + D (D3) ORAL Take 1 tablet by mouth once d* DAILY VITAMIN ORAL Take 1 tablet by mouth once d* OMEGA-3 FATTY ACIDS-FISH OIL * Taking 2,000 mg daily. Patient taking differently: Taking 1,000 mg daily. FLASH GLUCOSE SCANNING READER Tests sugar six times a day. FLASH GLUCOSE SENSOR KIT Tests six times a day UNIFINE PENTIPS 31 GAUGE X 3/* USE TO INJECT INSULIN FIVE TI* BLOOD-GLUCOSE METER KIT Glucose Meter of Choice - Kit* CLINDAMYCIN HCL 150 MG CAPSULE Take 1 capsule by mouth four * LANCETS Test blood sugar(s) 6 times d* BLOOD SUGAR DIAGNOSTIC STRIPS Test blood sugar(s) 6 times d* Problem List As Of Date 01/25/2018 Noted Resolved Diabetes mellitus type 2, uncontrolled, without*INVALID FOR*07/07/2015 IMPOTENCE, ORGANIC ORIGN [N52.9] INVALID FOR* Hypoglycemia associated with diabetes (HCC) [E1*INVALID FOR*06/30/2017 Hearing loss [H91.90] INVALID FOR* Dizziness [R42] INVALID FOR*08/18/2016 Vertigo [R42] INVALID FOR* GERD (gastroesophageal reflux disease) [K21.9] INVALID FOR* Pure hyperglyceridemia [E78.1] INVALID FOR* Lesion of sciatic nerve [G57.00] INVALID FOR* Brachial neuritis or radiculitis NOS [M54.12] INVALID FOR* More... Adjustment disorder [F43.20] INVALID FOR* Dysthymia [F34.1] INVALID FOR* Type 1 diabetes, uncontrolled, with neuropathy *INVALID FOR* Tachycardia [R00.0] INVALID FOR*08/18/2016 ELIZABETH (obstructive sleep apnea) [G47.33] INVALID FOR*06/30/2017 Chest pain [R07.9] INVALID FOR*08/18/2016 Gallstones [K80.20] INVALID FOR*10/01/2016 Positive TB test [R76.11] INVALID FOR* Diabetic polyneuropathy associated with type 1 *INVALID FOR* More... Carpal tunnel syndrome, bilateral [G56.03] INVALID FOR* More... Ulnar neuropathy of left upper extremity [G56.2*INVALID FOR* Neuropathy, ulnar at elbow, left [G56.22] INVALID FOR* More... Carpal tunnel syndrome, left [G56.02] INVALID FOR* More... Prescriptions ordered this encounter Disp Refills Start End FLASH GLUCOSE SCANNING READER 1 Ea* 0 01/25/2018 Sig: Tests sugar six times a day. FLASH GLUCOSE SENSOR KIT 1 Kit 11 01/25/2018 Sig: Tests six times a day Follow-up and Disposition History Recorded Letter Text [facility] [address], [place] [address] Sandeep Briones [address] [place] [id number] Clinic #: [id number] 01/25/2018 Sandeep was seen in the office today. We discussed that based on a literature search, specifically in Up To Date, which is a evidence based physician review of the medical literature, atenolol is one of the most commonly shown false positives for amphetamines in a drug screen. He currently takes atenolol 25 mg a day which is a betablocker, or common bp medication that is used for hypertension, heart issues or headaches. That could definitely cause a false trace positive in a drug screen. Sincerely: Jordi Weaver MD Encounter Status:Closed by JORDI WEAVER MD on 01/25/18 PROGRESS Observed: 12/30/2017 Status: COMPLETED Source: [place] 4:12 PM [facility] REPOSITORY HNO ID: [id number] Author: Jordi Weaver Service: (none) Author Type: Physician Type: Progress Notes Filed: 12/30/2017 4:26 PM Note Text: Patient presents with: Diabetes Derm Problem: sores on ankles HPI: Patient presents for sores on his ankles. Started on December 21. Was arrested for possession of a controlled substance in his vehicle. He is facing possible felony possession. Worried about his son and dog. He goes back again in a week. Is tearful. He declines meds to help him. Has sores on his ankles from shackles. He states he was found to have methamphetamines. He states he was not taking them. No suicidal ideation. Does not want to say how they were obtained. No fever or chills. No red streaks. Has been using neosporin or bacitracin. Has a dark area under the great toenail on his right foot. No drainage. Sugars are doing well. His numbers are much better. Says it is the only thing in his life that is going well. Component Latest Ref Rng AND Units 12/14/2017 Glucose 74 - 99 mg/dL 88 BUN 9 - 24 mg/dL 11 Creatinine 0.73 - 1.22 mg/dL 0.74 Sodium 136 - 144 mmol/L 141 Potassium 3.7 - 5.1 mmol/L 4.5 Chloride 97 - 105 mmol/L 102 CO2 22 - 30 mmol/L 26 Anion Gap 9 - 18 mmol/L 13 Calcium 8.5 - 10.2 mg/dL 9.4 eGFR- >60 eGFR-All Other Races . >60 Hemoglobin A1C 4.3 - 5.6 % 7.9 (H) Estimated Average Glucose mg/dL 180 Magnesium 1.7 - 2.3 mg/dL 2.0 CK 51 - 298 U/L 233 MEDICATIONS: Current Outpatient Prescriptions: oxaprozin (DAYPRO) 600 mg tablet Take 2 tablets by mouth once daily. UNIFINE PENTIPS 31 gauge x 3/16 ndle USE TO INJECT INSULIN FIVE TIMES DAILY insulin aspart (NOVOLOG FLEXPEN) 100 unit/mL inpn INJECT 15 UNITS SUBCUTANEOUSLY THREE TIMES DAILY WITH MEALS/DIAGNOSIS CODE E10.40 (Patient taking differently: INJECT 15 UNITS SUBCUTANEOUSLY THREE TIMES DAILY WITH MEALS/DIAGNOSIS CODE E10.40 SLIDING SCALE. ) insulin glargine (BASAGLAR KWIKPEN) 100 unit/mL (3 mL) inpn Inject 35 Units subcutaneously daily at bedtime. atenolol (TENORMIN) 25 mg tablet Take 1 tablet by mouth once daily. ergocalciferol, vitamin D2, (DRISDOL) 50,000 unit capsule Take 1 capsule by mouth once each week. Lancets lancets Test blood sugar(s) 6 times daily. Dx: Type 1 DM - Controlled E10.9 Insulin: Yes blood sugar diagnostic (BLOOD GLUCOSE TEST) test strip Test blood sugar(s) 6 times daily. Dx: Type 1 DM - Controlled E10.9 Insulin: Yes Blood-Glucose Meter monitoring kit Glucose Meter of Choice - Kit - Dx: Type 1 DM - Controlled E10.9 MAGNESIUM ORAL Take 1 tablet by mouth once daily. CALCIUM CARBONATE/VITAMIN D3 (CALCIUM 500 + D, D3, ORAL) Take 1 tablet by mouth once daily. MULTIVITAMIN (DAILY VITAMIN ORAL) Take 1 tablet by mouth once daily. Fish Oil-[place]-3 Fatty Acids (FISH OIL OMEGA 3-6-9) 300-1,000 mg cpDR Taking 2,000 mg daily. (Patient taking differently: Taking 1,000 mg daily.) No current facility-administered medications for this visit. ALLERGIES: ALLERGIES Allergen Reactions - Gabapentin Intolerance Foggy, staggering, trouble thinking PAST MEDICAL HISTORY Diagnosis Date - Cellulitis and abscess of hand, except fingers and thumb 05/2004 Curaneous erupting vesicles bilaterally. - Diabetic neuropathy (HCC) - MRSA (methicillin resistant staph aureus) culture positive 2012 In left fifth finger. - Pancreatitis - Sleep apnea underwent surgery - Tachycardia - Type 1 diabetes mellitus (HCC) 12/1994 - Ulcer of lower limb, unspecified 12/1994 Abcess which became ulcerative lesion. 6 months to heal completely. 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 Lives one hour from [place]. Two biological kids 13 and 7. Two step-kids 22 and 20. Reviewed current medications, allergies, past medical history, surgical history, family history and social history today. REVIEW OF SYSTEMS All other reviewed and negative other than HPI. HEALTH MAINTENANCE: Reviewed health maintenance issues today and recommended the following in detail. DTAP,TDAP,TD(1 - Tdap) due on 1992 DIABETIC FOOT EXAM due on 02/11/2017 VITALS: BP 136/72 Pulse 106 Resp 18 Last 4 Encounter Wt Readings: Date: Wt: 12/23/2017 88.4 kg (194 lb 12.8 oz) 12/14/2017 89.4 kg (197 lb) 06/30/2017 92.1 kg (203 lb) 06/27/2017 92.9 kg (204 lb 12.8 oz) PHYSICAL EXAMINATION: General appearance: Well appearing, alert, in no acute distress, well-hydrated, well nourished. Skin: several one cm wounds around ankle. Mild surrounding redness. No warmth. One area on right lan glenn 3 inches long that is slightly red. Feet:Shoes and socks removed, normal distal pulses and not sensitive to monofilament bilaterally. Has a small dark area beneath the great nail on the left. ? Bruise vs early fungal infection. I doubt is a skin lesion but will follow closely. ASSESSMENT/PLAN: 1. Wound of ankle, unspecified laterality, initial encounter - ICD9: 891.0, ICD10: S91.009A (primary diagnosis) - Discussed risks and benefits of new medication with the patient. Advised them to call if any side effects or questions. - Red flags for re-assessment reviewed with patient in detail. - recheck in one week. - CLINDAMYCIN HCL 150 MG CAPSULE 2. Type 1 diabetes, uncontrolled, with neuropathy (HCC) - ICD9: 250.63, 357.2, ICD10: E10.40, E10.65 - watch sugars as closely. Jordi Weaver MD RTO in one week and prn. CNOV Observed: 12/30/2017 Status: COMPLETED Source: [place] 4:00 PM [facility] REPOSITORY [facility] SANDEEP BRIONES ([id number]) 1975 [facility] Date Time Provider Department 12/30/17 4:00 PM JORDI WEAVER During your visit today, we recorded the following information about you: Pulse Respiration Blood pressure 106/minute 18/minute 136/72 Jordi Weaver MD 12/30/2017 4:26 PM Signed Patient presents with: Diabetes Derm Problem: sores on ankles HPI: Patient presents for sores on his ankles. Started on December 21. Was arrested for possession of a controlled substance in his vehicle. He is facing possible felony possession. Worried about his son and dog. He goes back again in a week. Is tearful. He declines meds to help him. Has sores on his ankles from shackles. He states he was found to have methamphetamines. He states he was not taking them. No suicidal ideation. Does not want to say how they were obtained. No fever or chills. No red streaks. Has been using neosporin or bacitracin. Has a dark area under the great toenail on his right foot. No drainage. Sugars are doing well. His numbers are much better. Says it is the only thing in his life that is going well. Component Latest Ref Rng AND Units 12/14/2017 Glucose 74 - 99 mg/dL 88 BUN 9 - 24 mg/dL 11 Creatinine 0.73 - 1.22 mg/dL 0.74 Sodium 136 - 144 mmol/L 141 Potassium 3.7 - 5.1 mmol/L 4.5 Chloride 97 - 105 mmol/L 102 CO2 22 - 30 mmol/L 26 Anion Gap 9 - 18 mmol/L 13 Calcium 8.5 - 10.2 mg/dL 9.4 eGFR- >60 eGFR-All Other Races . >60 Hemoglobin A1C 4.3 - 5.6 % 7.9 (H) Estimated Average Glucose mg/dL 180 Magnesium 1.7 - 2.3 mg/dL 2.0 CK 51 - 298 U/L 233 MEDICATIONS: Current Outpatient Prescriptions: oxaprozin (DAYPRO) 600 mg tablet Take 2 tablets by mouth once daily. UNIFINE PENTIPS 31 gauge x 16 ndle USE TO INJECT INSULIN FIVE TIMES DAILY insulin aspart (NOVOLOG FLEXPEN) 100 unit/mL inpn INJECT 15 UNITS SUBCUTANEOUSLY THREE TIMES DAILY WITH MEALS/DIAGNOSIS CODE E10.40 (Patient taking differently: INJECT 15 UNITS SUBCUTANEOUSLY THREE TIMES DAILY WITH MEALS/DIAGNOSIS CODE E10.40 SLIDING SCALE. ) insulin glargine (BASAGLAR KWIKPEN) 100 unit/mL (3 mL) inpn Inject 35 Units subcutaneously daily at bedtime. atenolol (TENORMIN) 25 mg tablet Take 1 tablet by mouth once daily. ergocalciferol, vitamin D2, (DRISDOL) 50,000 unit capsule Take 1 capsule by mouth once each week. Lancets lancets Test blood sugar(s) 6 times daily. Dx: Type 1 DM - Controlled E10.9 Insulin: Yes blood sugar diagnostic (BLOOD GLUCOSE TEST) test strip Test blood sugar(s) 6 times daily. Dx: Type 1 DM - Controlled E10.9 Insulin: Yes Blood-Glucose Meter monitoring kit Glucose Meter of Choice - Kit - Dx: Type 1 DM - Controlled E10.9 MAGNESIUM ORAL Take 1 tablet by mouth once daily. CALCIUM CARBONATE/VITAMIN D3 (CALCIUM 500 + D, D3, ORAL) Take 1 tablet by mouth once daily. MULTIVITAMIN (DAILY VITAMIN ORAL) Take 1 tablet by mouth once daily. Fish Oil-[place]-3 Fatty Acids (FISH OIL OMEGA 3-6-9) 300-1,000 mg cpDR Taking 2,000 mg daily. (Patient taking differently: Taking 1,000 mg daily.) No current facility-administered medications for this visit. ALLERGIES: ALLERGIES Allergen Reactions - Gabapentin Intolerance Foggy, staggering, trouble thinking PAST MEDICAL HISTORY Diagnosis Date - Cellulitis and abscess of hand, except fingers and thumb 05/2004 Curaneous erupting vesicles bilaterally. - Diabetic neuropathy (HCC) - MRSA (methicillin resistant staph aureus) culture positive 2012 In left fifth finger. - Pancreatitis - Sleep apnea underwent surgery - Tachycardia - Type 1 diabetes mellitus (HCC) 12/1994 - Ulcer of lower limb, unspecified 12/1994 Abcess which became ulcerative lesion. 6 months to heal completely. PAST SURGICAL HISTORY Procedure Laterality Date - APPENDECTOMY - HERNIA REPAIR HX Right inguinal - LAPAROSCOPIC CHOLEYCYSTECTOMY 2016 Cholecystectomy, lap - OTHER [id number] surgery for sleep apnea FAMILY HISTORY Problem Relation Age of Onset - unknown [OTHER] Other mother adopted - None Mother - None Father - No Ocular Disease No Family History Social History Marital status: Spouse name: Years of education: Number of children: 4 Occupational History Occupation Employer Comment technical support [employer]* Social History Main Topics Smoking status: Former Smoker Packs/day: 2.00 Years: 17.00 Types: Cigarettes Quit date: 06/13/2016 Smokeless tobacco: Current User Types: Chew Comment: nicotine gum Alcohol use: Yes Comment: Very seldom Drug use: No Sexual activity: Yes Social History Narrative 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 Lives [place] from [place]. Two biological kids 13 and 7. Two step-kids 22 and 20. Reviewed current medications, allergies, past medical history, surgical history, family history and social history today. REVIEW OF SYSTEMS All other reviewed and negative other than HPI. HEALTH MAINTENANCE: Reviewed health maintenance issues today and recommended the following in detail. DTAP,TDAP,TD(1 - Tdap) due on 1992 DIABETIC FOOT EXAM due on 02/11/2017 VITALS: BP 136/72 Pulse 106 Resp 18 Last 4 Encounter Wt Readings: Date: Wt: 12/23/2017 88.4 kg (194 lb 12.8 oz) 12/14/2017 89.4 kg (197 lb) 06/30/2017 92.1 kg (203 lb) 06/27/2017 92.9 kg (204 lb 12.8 oz) PHYSICAL EXAMINATION: General appearance: Well appearing, alert, in no acute distress, well-hydrated, well nourished. Skin: several one cm wounds around ankle. Mild surrounding redness. No warmth. One area on right lan glenn 3 inches long that is slightly red. Feet:Shoes and socks removed, normal distal pulses and not sensitive to monofilament bilaterally. Has a small dark area beneath the great nail on the left. ? Bruise vs early fungal infection. I doubt is a skin lesion but will follow closely. ASSESSMENT/PLAN: 1. Wound of ankle, unspecified laterality, initial encounter - ICD9: 891.0, ICD10: S91.009A (primary diagnosis) - Discussed risks and benefits of new medication with the patient. Advised them to call if any side effects or questions. - Red flags for re-assessment reviewed with patient in detail. - recheck in one week. - CLINDAMYCIN HCL 150 MG CAPSULE 2. Type 1 diabetes, uncontrolled, with neuropathy (HCC) - ICD9: 250.63, 357.2, ICD10: E10.40, E10.65 - watch sugars as closely. Jordi Weaver MD RTO in one week and prn. Referring Provider: JORDI WEAVER [[id number]] Allergies As of Date: 12/30/2017 Noted Allergy Reaction GABAPENTIN 12/14/2017 5 - Intolerance Comments: Foggy, staggering, trouble thinking Date Reviewed: 12/23/2017 Reviewed by: Christin Wagner Ma - Fully Assessed Reason for Visit: Diabetes [34] Derm Problem [33] Cmt: sores on ankles Primary Visit Diagnosis:Wound of ankle, unspecified laterality, initial encounter [S91.009A] Other Visit Diagnosis:Type 1 diabetes, uncontrolled, with neuropathy (HCC) [E10.40, E10.65] Order(s):clindamycin (CLEOCIN) 150 mg capsuleTake 1 capsule by mouth four times daily.Disp: 40 capsuleRfl: 0 Prescriptions as of 12/30/2017 Sig: OXAPROZIN 600 MG TABLET Take 2 tablets by mouth once * UNIFINE PENTIPS 31 GAUGE X 3/* USE TO INJECT INSULIN FIVE TI* INSULIN ASPART U-100 100 UNI* INJECT 15 UNITS SUBCUTANEOUSL* Patient taking differently: INJECT 15 UNITS SUBCUTANEOUSL* INSULIN GLARGINE (U-100) 100 * Inject 35 Units subcutaneousl* ATENOLOL 25 MG TABLET Take 1 tablet by mouth once d* ERGOCALCIFEROL (VITAMIN D2) 5* Take 1 capsule by mouth once * LANCETS Test blood sugar(s) 6 times d* BLOOD SUGAR DIAGNOSTIC STRIPS Test blood sugar(s) 6 times d* BLOOD-GLUCOSE METER KIT Glucose Meter of Choice - Kit* MAGNESIUM ORAL Take 1 tablet by mouth once d* CALCIUM 500 + D (D3) ORAL Take 1 tablet by mouth once d* DAILY VITAMIN ORAL Take 1 tablet by mouth once d* OMEGA-3 FATTY ACIDS-FISH OIL * Taking 2,000 mg daily. Patient taking differently: Taking 1,000 mg daily. CLINDAMYCIN HCL 150 MG CAPSULE Take 1 capsule by mouth four * Problem List As Of Date 12/30/2017 Noted Resolved Diabetes mellitus type 2, uncontrolled, without*INVALID FOR*07/07/2015 IMPOTENCE, ORGANIC ORIGN [N52.9] INVALID FOR* Hypoglycemia associated with diabetes (HCC) [E1*INVALID FOR*06/30/2017 Hearing loss [H91.90] INVALID FOR* Dizziness [R42] INVALID FOR*08/18/2016 Vertigo [R42] INVALID FOR* GERD (gastroesophageal reflux disease) [K21.9] INVALID FOR* Pure hyperglyceridemia [E78.1] INVALID FOR* Lesion of sciatic nerve [G57.00] INVALID FOR* Brachial neuritis or radiculitis NOS [M54.12] INVALID FOR* More... Adjustment disorder [F43.20] INVALID FOR* Dysthymia [F34.1] INVALID FOR* Type 1 diabetes, uncontrolled, with neuropathy *INVALID FOR* Tachycardia [R00.0] INVALID FOR*08/18/2016 ELIZABETH (obstructive sleep apnea) [G47.33] INVALID FOR*06/30/2017 Chest pain [R07.9] INVALID FOR*08/18/2016 Gallstones [K80.20] INVALID FOR*10/01/2016 Positive TB test [R76.11] INVALID FOR* Diabetic polyneuropathy associated with type 1 *INVALID FOR* More... Carpal tunnel syndrome, bilateral [G56.03] INVALID FOR* More... Ulnar neuropathy of left upper extremity [G56.2*INVALID FOR* Neuropathy, ulnar at elbow, left [G56.22] INVALID FOR* More... Carpal tunnel syndrome, left [G56.02] INVALID FOR* More... Prescriptions ordered this encounter Disp Refills Start End CLINDAMYCIN HCL 150 MG CAPSULE 40 c* 0 12/30/2017 Route: ORAL Sig: Take 1 capsule by mouth four times daily. Medications Discontinued During This Encounter tiZANidine HCl (ZANAFLEX) 2 mg capsu* 30 c* 1 12/14/2017 12/30/2017 Route: ORAL Sig: Take 1 capsule by mouth three times daily. Patient not taking: Reported on 12/23/2017 Disc: Course of therapy completed tiZANidine (ZANAFLEX) 2 mg tablet 30 t* 1 12/15/2017 12/30/2017 Route: ORAL Sig: Take 1 tablet by mouth three times daily. Patient not taking: Reported on 12/23/2017 Disc: Course of therapy completed Disposition: Return in about 1 week (around 01/06/2018). Follow-up and Disposition History Recorded Encounter Status:Closed by JORDI WEAVER MD on 12/30/17 PROGRESS Observed: 12/27/2017 Status: COMPLETED Source: [place] 1:05 PM [facility] REPOSITORY HNO ID: [id number] Author: Jordi Weaver Service: (none) Author Type: Physician Type: Progress Notes Filed: 12/27/2017 1:07 PM Note Text: Patient left before being seen CNOV Observed: 12/23/2017 Status: COMPLETED Source: [place] 1:40 PM [facility] REPOSITORY Office Visit ([facility]) SANDEEP BRIONES ([id number]) 1975 [facility] Date Time Provider Department 12/23/17 1:40 PM JORDI WEAVER During your visit today, we recorded the following information about you: Pulse Respiration Blood pressure Weight 84/minute 16/minute 128/64 88.4 kg Jordi Weaver MD 12/27/2017 1:07 PM Signed Patient left before being seen Referring Provider: SELF [[id number]] Allergies As of Date: 12/23/2017 Noted Allergy Reaction GABAPENTIN 12/14/2017 5 - Intolerance Comments: Foggy, staggering, trouble thinking Date Reviewed: 12/23/2017 Reviewed by: Christin Wagner Ma - Fully Assessed Reason for Visit: Cellulitis [488] Primary Visit Diagnosis:Diabetic polyneuropathy associated with type 1 diabetes mellitus (HCC) [E10.42] Prescriptions as of 12/23/2017 Sig: OXAPROZIN 600 MG TABLET Take 2 tablets by mouth once * UNIFINE PENTIPS 31 GAUGE X 3/* USE TO INJECT INSULIN FIVE TI* INSULIN ASPART U-100 100 UNI* INJECT 15 UNITS SUBCUTANEOUSL* Patient taking differently: INJECT 15 UNITS SUBCUTANEOUSL* INSULIN GLARGINE (U-100) 100 * Inject 35 Units subcutaneousl* ATENOLOL 25 MG TABLET Take 1 tablet by mouth once d* ERGOCALCIFEROL (VITAMIN D2) 5* Take 1 capsule by mouth once * LANCETS Test blood sugar(s) 6 times d* BLOOD SUGAR DIAGNOSTIC STRIPS Test blood sugar(s) 6 times d* BLOOD-GLUCOSE METER KIT Glucose Meter of Choice - Kit* MAGNESIUM ORAL Take 1 tablet by mouth once d* CALCIUM 500 + D (D3) ORAL Take 1 tablet by mouth once d* DAILY VITAMIN ORAL Take 1 tablet by mouth once d* OMEGA-3 FATTY ACIDS-FISH OIL * Taking 2,000 mg daily. Patient taking differently: Taking 1,000 mg daily. TIZANIDINE 2 MG TABLET Take 1 tablet by mouth three * Patient not taking: Reported on 12/23/2017 TIZANIDINE 2 MG CAPSULE Take 1 capsule by mouth three* Patient not taking: Reported on 12/23/2017 Problem List As Of Date 12/23/2017 Noted Resolved Diabetes mellitus type 2, uncontrolled, without*INVALID FOR*07/07/2015 IMPOTENCE, ORGANIC ORIGN [N52.9] INVALID FOR* Hypoglycemia associated with diabetes (HCC) [E1*INVALID FOR*06/30/2017 Hearing loss [H91.90] INVALID FOR* Dizziness [R42] INVALID FOR*08/18/2016 Vertigo [R42] INVALID FOR* GERD (gastroesophageal reflux disease) [K21.9] INVALID FOR* Pure hyperglyceridemia [E78.1] INVALID FOR* Lesion of sciatic nerve [G57.00] INVALID FOR* Brachial neuritis or radiculitis NOS [M54.12] INVALID FOR* More... Adjustment disorder [F43.20] INVALID FOR* Dysthymia [F34.1] INVALID FOR* Type 1 diabetes, uncontrolled, with neuropathy *INVALID FOR* Tachycardia [R00.0] INVALID FOR*08/18/2016 ELIZABETH (obstructive sleep apnea) [G47.33] INVALID FOR*06/30/2017 Chest pain [R07.9] INVALID FOR*08/18/2016 Gallstones [K80.20] INVALID FOR*10/01/2016 Positive TB test [R76.11] INVALID FOR* Diabetic polyneuropathy associated with type 1 *INVALID FOR* More... Carpal tunnel syndrome, bilateral [G56.03] INVALID FOR* More... Ulnar neuropathy of left upper extremity [G56.2*INVALID FOR* Neuropathy, ulnar at elbow, left [G56.22] INVALID FOR* More... Carpal tunnel syndrome, left [G56.02] INVALID FOR* More... Encounter Status:Closed by JORDI WEAVER MD on 12/27/17 BASIC METABOLIC PANL Collected: 12/14/2017 Status: F Source: [place] 2:03 PM [facility] REPOSITORY TYPE CODE TESTS RESULT OUT OF REFERENCE UNITS RANGE LAB GLU 74-99 mg/dL Glucose 88 Result Comment: The [place] Diabetes Association (ADA) provides guidance for cutoff values for fasting glucose and random glucose. The ADA defines fasting as no caloric intake for at least 8 hours. Fas ting plasma glucose results between 100 to 125 mg/dL indicate increased risk for diabetes (prediabetes). Fasting plasma glucose results greater than or equal to 126 mg/dL meet the criteria for diagnosis of diabetes. In the absence of unequivocal hyperglycemia, results should be confirmed by repeat testing. In a patient with classic symptoms of hyperglycemia or hyperglycemic crisis, random plasma glucose results greater than or equal to 200 mg/dL meet the criteria for diagnosis of diabetes. Reference: Standards of Medical Care in Diabetes 2016, [place] Diabetes Association. Diabetes Care. 2016.39(Suppl 1). LAB BUN 9-24 mg/dL BUN 11 LAB CRET 0.73-1.22 mg/dL Creatinine 0.74 LAB NA 136-144 mmol/L Sodium 141 LAB K 3.7-5.1 mmol/L Potassium 4.5 LAB CL 97-105 mmol/L Chloride 102 LAB CO2 22-30 mmol/L CO2 26 LAB AGAP 9-18 mmol/L Anion Gap 13 LAB CA 8.5-10.2 mg/dL Calcium, Total 9.4 LAB GFRAA eGFR- Amer. >60 LAB GFRNAA . eGFR-All Other Races >60 Result Comment: eGFR (Estimated GFR) Units of measure: mL/min/1.73 meters squared eGFR is derived from the reexpressed MDRD Study equation using the following parameters: serum creatinine, age, gender and race. The creatinine assay has been calibrated to be traceable to IDMS. An eGFR <60 mL/min/1.73m2 for >3 months is consistent with chronic kidney disease. Refer to KDOQI guidelines for clinical interpretation. In patients with unstable renal function, e.g. those with acute kidney injury, the eGFR may not accurately reflect actual GFR. Performed By: #### BMP, CK, MG1, HBA1C #### [facility] [address] [id number] CK Collected: 12/14/2017 Status: F Source: [facility] 2:03 PM [facility] REPOSITORY TYPE CODE TESTS RESULT OUT OF RANGE REFERENCE UNITS LAB CK 51-298 U/L CK 233 Result Comment: Please note the updated, gender-specific reference range for this test (effective 05/20/2016). Performed By: #### BMP, CK, MG1, HBA1C #### [facility] [address] [place], [place] [address] MAGNESIUM Collected: 12/14/2017 Status: F Source: [place] 2:03 PM [facility] REPOSITORY TYPE CODE TESTS RESULT OUT OF REFERENCE UNITS RANGE LAB MG 1.7-2.3 mg/dL Magnesium 2.0 Performed By: #### BMP, CK, MG1, HBA1C #### [facility] [address] [place], [place] [address] HEMOGLOBIN A1C Collected: 12/14/2017 Status: F Source: [place] 2:03 PM [facility] REPOSITORY TYPE CODE TESTS RESULT OUT OF REFERENCE UNITS RANGE LAB HGBA1C 4.3-5.6 % High Hemoglobin A1c 7.9 LAB HBA0 mg/dL Est. Average Glucose 180 Result Comment: eAG: (Estimated average glucose) is a calculated value from HgbA1c and is product sales representative of the average blood glucose level in the last 2-3 month period. Performed By: #### BMP, CK, MG1, HBA1C #### [facility] [address] [place], [place] [address] PROGRESS Observed: 12/14/2017 Status: COMPLETED Source: [place] 1:01 PM [facility] REPOSITORY HNO ID: [id number] Author: Mina Cochran (Shirin) Merritt Service: (none) Author Type: Physician Plate Cleaner Type: Progress Notes Filed: 12/14/2017 8:03 PM Note Text: 42 year old male with c/o 1. Cramps And stiffness in legs and back ongoing for awhile. Started new job a few weeks ago. 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 Stopped gabapentin due to side effects. Tylenol, Motrin, naproxen don't help. Thighs, backs of legs, low back, fingers. 2. Vertigo: sporadic. Last a few secs to minutes. 2-8 times/ day. Persistent over last month. No hearing loss or ringing in ears. Vertigo has been sporadic in the past. Does never lasted this long. 3. Patient is been noncompliant with diabetic follow-ups. No showed for his last endocrinology appointment. Patient states he doesn't see the point coming in every 3 months to have his blood checked when no one makes any changes. I went back through his record of insulin demonstrating that there were changes made based on his lab work. We discussed the importance of keeping A1c lower. I told him the goal was 8% but I would really prefer below that if possible. Patient was somewhat argumentative and seems fatigued with discussion today. This led to discussion of some personal issues which are going on at home which we discussed as below. Patient is compliant with insulin, checks blood sugars in the morning and evening but can't give me a list or recent results. Denies visual blurring, excessive urination, weight loss, any new neuropathy. Patient did not follow-up for his last eye exam. Continues to have trouble with erectile dysfunction. 4. Patient identifies he is started working so that he can get out of his current living arrangement. His ex- has recently been identified as having a secret habit of cross dressing as a woman meaning that she dresses to look like a man his dressing like a woman. She has had multiple sexual encounters and an Internet presence related to her sexual habits. Also found that she is been using drugs and addictive patterns. He is trying to get his children out of the house and trying to establish house elsewhere. His been very stressed and disappointed in the relationship. 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 HISTORIES FAMILY HISTORY Problem Relation Age of Onset - unknown [OTHER] Other mother adopted - None Mother - None Father - No Ocular Disease No Family History PAST MEDICAL HISTORY Diagnosis Date - Cellulitis and abscess of hand, except fingers and thumb 05/2004 Curaneous erupting vesicles bilaterally. - Diabetic neuropathy (HCC) - MRSA (methicillin resistant staph aureus) culture positive 2012 In left fifth finger. - Pancreatitis - Sleep apnea underwent surgery - Tachycardia - Type 1 diabetes mellitus (HCC) 12/1994 - Ulcer of lower limb, unspecified 12/1994 Abcess which became ulcerative lesion. 6 months to heal completely. PAST SURGICAL HISTORY Procedure Laterality Date - APPENDECTOMY - HERNIA REPAIR HX Right inguinal - LAPAROSCOPIC CHOLEYCYSTECTOMY 2016 Cholecystectomy, lap - OTHER [id number] surgery for sleep apnea Social History Marital status: Spouse name: Years of education: Number of children: 4 Occupational History Occupation Employer Comment technical support [employer]* Social History Main Topics Smoking status: Former Smoker Packs/day: 2.00 Years: 17.00 Types: Cigarettes Quit date: 06/13/2016 Smokeless tobacco: Current User Types: Chew Comment: nicotine gum Alcohol use: Yes Comment: Very seldom Drug use: No Sexual activity: Yes Social History Narrative 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 Lives one hour from [place]. Two biological kids 13 and 7. Two step-kids 22 and 20. 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 Disp: 5 Pen Rfl: 11 atenolol (TENORMIN) 25 mg tablet Take 1 tablet by mouth once daily. Disp: 90 tablet Rfl: 3 ergocalciferol, vitamin D2, (DRISDOL) 50,000 unit capsule Take 1 capsule by mouth once each week. Disp: 12 capsule Rfl: 3 Lancets lancets Test blood sugar(s) 6 times daily. Dx: Type 1 DM - Controlled E10.9 Insulin: Yes Disp: 100 Each Rfl: 11 blood sugar diagnostic (BLOOD GLUCOSE TEST) test strip Test blood sugar(s) 6 times daily. Dx: Type 1 DM - Controlled E10.9 Insulin: Yes Disp: 450 Strip Rfl: 3 Blood-Glucose Meter monitoring kit Glucose Meter of Choice - Kit - Dx: Type 1 DM - Controlled E10.9 Disp: 1 Each Rfl: 0 MAGNESIUM ORAL Take 1 tablet by mouth once daily. Disp: Rfl: CALCIUM CARBONATE/VITAMIN D3 (CALCIUM 500 + D, D3, ORAL) Take 1 tablet by mouth once daily. Disp: Rfl: MULTIVITAMIN (DAILY VITAMIN ORAL) Take 1 tablet by mouth once daily. Disp: Rfl: Fish Oil-[place]-3 Fatty Acids (FISH OIL OMEGA 3-6-9) 300-1,000 mg cpDR Taking 2,000 mg daily. (Patient taking differently: Taking 1,000 mg daily.) Disp: Rfl: 0 gabapentin (NEURONTIN) 100 mg capsule Take 1 capsule by mouth three times daily for 90 days. Disp: 90 capsule Rfl: 2 No current facility-administered medications for this visit. DTAP,TDAP,TD(1 - Tdap) due on 1992 DIABETIC FOOT EXAM due on 02/11/2017 HBA1C due on 12/21/2017 EXAM: BP 120/74 Pulse 80 Temp 36.2 ?C (97.2 ?F) (Tympanic) Resp 16 Wt 89.4 kg (197 lb) BMI 25.29 kg/m? Pleasant Adult man in no acute distress with depressed affect and somewhat testy at the beginning of the visit. This warmed up as we confronted issues. Alert and oriented all spheres. Normal affect and cognition. Speech normal. No deficits to learning or comprehension. Skin warm, dry, pink to lips and nailbeds. Normal turgor. Respirations regular and unlabored. HEENT WNL. TM's clear. Nose and oropharynx free from injection or lesion. No cervical lymph nodes. Thyroid non-tender, no masses. Carotids are 2+ without bruits. Chest CTA. HRRR without murmur or gallop. Extrem: no clubbing, cyanosis, edema. Extremities are warm and pink with prompt capillary refill. Patient moves stiffly with groans. Identifies discomfort and low back lateral thighs. He has tender on palpation with trigger points palpable. No exam: Pupils equal reactive to light and accommodation. Extraocular motions are intact with no nystatin was. Normal saccades. No pass pointing. Rhomberg is negative. Burlison Hallpike is negative for dizziness or nystagmus to the left or to the right. ASSESSMENT/PLAN: 1. Muscle spasm - ICD9: 728.85, ICD10: M62.838 (primary diagnosis) I suspect patient's discomfort is the fact that he is not used to work in this capacity and is adjusting to work tolerance. He was unable to tolerate gabapentin due to side effects and stopped it. He also has not tolerated muscle relaxers in the past, specifically Flexeril. Seems to be very sensitive to medication. - BASIC METABOLIC PNL - MAGNESIUM BLD - CK CREATINE KINASE - CONSULT TO PHYSICAL THERAPY - Trial of Zanaflex 2 mg as needed, trial at home first due to risk of sedation. May cut tablet in half if needed. Might consider baclofen if this doesn't work. Will enroll in physical therapy for work ability strengthening. Also for neck and back issues with [facility] program. 2. Type 1 diabetes, uncontrolled, with neuropathy (HCC) - ICD9: 250.63, 357.2, ICD10: E10.40, E10.65 uncontrolled - HGB A1C - BASIC METABOLIC PNL Spent considerable time educating patient on need for diabetic control and how it affects his entire life, specifically pain, nerves, muscles, renal functions etc. I'm not certain but vertigo may even be a complication of his diabetes. We discussed insulin pump and continuous glucose monitoring. Patient is interested in the latter. Advised patient needs to reschedule with endocrinology. In the meantime would like him to check blood sugars fasting and 2 hours after evening meal over the next 3 days and notify me of those. He does agree to continue lab work every 3 months until we get him controlled. He will phone in blood sugars. I will forward my comments to Dr. Ridley. Patient is referred to Angelica North [employer] REPAIR SUPERVISOR for consideration and application of continuous glucose monitor. 3. Adjustment disorder with depressed mood - ICD9: 309.0, ICD10: F43.21 Patient is not interested this time in medication for depression. Feels he's going to have to work symptoms out. We did discuss the fact that Cymbalta might be a good choice as it might help with his muscle pain, neuritic pain and depression. 4. BPPV (benign paroxysmal positional vertigo), unspecified laterality - ICD9: 386.11, ICD10: H81.10 Unable to induce vertigo. Patient has been on medication the past without success. We'll try [facility] program and physical therapy. - CONSULT TO PHYSICAL THERAPY Follow-up as above and in 3 months with either me or Dr. Weaver. Patient (guardian) expressed understanding of instructions and agrees with plan. SHIRIN Alcala Observed: 12/14/2017 Status: COMPLETED Source: [place] 12:00 PM [facility] RE[facility]ITORY [facility] SANDEEP BRIONES ([id number]) 1975 [facility] Date Time Provider Department 12/14/17 12:00 PM Mina BANG) ANTONIO During your visit today, we recorded the following information about you: Temperature Pulse Respiration Blood pressure 97.2 degrees 80/minute 16/minute 120/74 Weight 89.4 kg M Dimas Bang PA-C 12/14/2017 8:03 PM Signed 42 year old male with c/o 1. Cramps And stiffness in legs and back ongoing for awhile. Started new job a few weeks ago. 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 Stopped gabapentin due to side effects. Tylenol, Motrin, naproxen don't help. Thighs, backs of legs, low back, fingers. 2. Vertigo: sporadic. Last a few secs to minutes. 2-8 times/ day. Persistent over last month. No hearing loss or ringing in ears. Vertigo has been sporadic in the past. Does never lasted this long. 3. Patient is been noncompliant with diabetic follow-ups. No showed for his last endocrinology appointment. Patient states he doesn't see the point coming in every 3 months to have his blood checked when no one makes any changes. I went back through his record of insulin demonstrating that there were changes made based on his lab work. We discussed the importance of keeping A1c lower. I told him the goal was 8% but I would really prefer below that if possible. Patient was somewhat argumentative and seems fatigued with discussion today. This led to discussion of some personal issues which are going on at home which we discussed as below. Patient is compliant with insulin, checks blood sugars in the morning and evening but can't give me a list or recent results. Denies visual blurring, excessive urination, weight loss, any new neuropathy. Patient did not follow-up for his last eye exam. Continues to have trouble with erectile dysfunction. 4. Patient identifies he is started working so that he can get out of his current living arrangement. His ex- has recently been identified as having a secret habit of cross dressing as a woman meaning that she dresses to look like a man his dressing like a woman. She has had multiple sexual encounters and an Internet presence related to her sexual habits. Also found that she is been using drugs and addictive patterns. He is trying to get his children out of the house and trying to establish house elsewhere. His been very stressed and disappointed in the relationship. 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 HISTORIES FAMILY HISTORY Problem Relation Age of Onset - unknown [OTHER] Other mother adopted - None Mother - None Father - No Ocular Disease No Family History PAST MEDICAL HISTORY Diagnosis Date - Cellulitis and abscess of hand, except fingers and thumb 05/2004 Curaneous erupting vesicles bilaterally. - Diabetic neuropathy (HCC) - MRSA (methicillin resistant staph aureus) culture positive 2012 In left fifth finger. - Pancreatitis - Sleep apnea underwent surgery - Tachycardia - Type 1 diabetes mellitus (HCC) 12/1994 - Ulcer of lower limb, unspecified 12/1994 Abcess which became ulcerative lesion. 6 months to heal completely. PAST SURGICAL HISTORY Procedure Laterality Date - APPENDECTOMY - HERNIA REPAIR HX Right inguinal - LAPAROSCOPIC CHOLEYCYSTECTOMY 2016 Cholecystectomy, lap - OTHER [id number] surgery for sleep apnea Social History Marital status: Spouse name: Years of education: Number of children: 4 Occupational History Occupation Employer Comment technical support [employer]* Social History Main Topics Smoking status: Former Smoker Packs/day: 2.00 Years: 17.00 Types: Cigarettes Quit date: 06/13/2016 Smokeless tobacco: Current User Types: Chew Comment: nicotine gum Alcohol use: Yes Comment: Very seldom Drug use: No Sexual activity: Yes Social History Narrative 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 Lives [place] from [place]. Two biological kids 13 and 7. Two step-kids 22 and 20. 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 Disp: 5 Pen Rfl: 11 atenolol (TENORMIN) 25 mg tablet Take 1 tablet by mouth once daily. Disp: 90 tablet Rfl: 3 ergocalciferol, vitamin D2, (DRISDOL) 50,000 unit capsule Take 1 capsule by mouth once each week. Disp: 12 capsule Rfl: 3 Lancets lancets Test blood sugar(s) 6 times daily. Dx: Type 1 DM - Controlled E10.9 Insulin: Yes Disp: 100 Each Rfl: 11 blood sugar diagnostic (BLOOD GLUCOSE TEST) test strip Test blood sugar(s) 6 times daily. Dx: Type 1 DM - Controlled E10.9 Insulin: Yes Disp: 450 Strip Rfl: 3 Blood-Glucose Meter monitoring kit Glucose Meter of Choice - Kit - Dx: Type 1 DM - Controlled E10.9 Disp: 1 Each Rfl: 0 MAGNESIUM ORAL Take 1 tablet by mouth once daily. Disp: Rfl: CALCIUM CARBONATE/VITAMIN D3 (CALCIUM 500 + D, D3, ORAL) Take 1 tablet by mouth once daily. Disp: Rfl: MULTIVITAMIN (DAILY VITAMIN ORAL) Take 1 tablet by mouth once daily. Disp: Rfl: Fish Oil-[place]-3 Fatty Acids (FISH OIL OMEGA 3-6-9) 300-1,000 mg cpDR Taking 2,000 mg daily. (Patient taking differently: Taking 1,000 mg daily.) Disp: Rfl: 0 gabapentin (NEURONTIN) 100 mg capsule Take 1 capsule by mouth three times daily for 90 days. Disp: 90 capsule Rfl: 2 No current facility-administered medications for this visit. DTAP,TDAP,TD(1 - Tdap) due on 1992 DIABETIC FOOT EXAM due on 02/11/2017 HBA1C due on 12/21/2017 EXAM: BP 120/74 Pulse 80 Temp 36.2 ?C (97.2 ?F) (Tympanic) Resp 16 Wt 89.4 kg (197 lb) BMI 25.29 kg/m? Pleasant Adult man in no acute distress with depressed affect and somewhat testy at the beginning of the visit. This warmed up as we confronted issues. Alert and oriented all spheres. Normal affect and cognition. Speech normal. No deficits to learning or comprehension. Skin warm, dry, pink to lips and nailbeds. Normal turgor. Respirations regular and unlabored. HEENT WNL. TM's clear. Nose and oropharynx free from injection or lesion. No cervical lymph nodes. Thyroid non-tender, no masses. Carotids are 2+ without bruits. Chest CTA. HRRR without murmur or gallop. Extrem: no clubbing, cyanosis, edema. Extremities are warm and pink with prompt capillary refill. Patient moves stiffly with groans. Identifies discomfort and low back lateral thighs. He has tender on palpation with trigger points palpable. No exam: Pupils equal reactive to light and accommodation. Extraocular motions are intact with no nystatin was. Normal saccades. No pass pointing. Rhomberg is negative. Burlison Hallpike is negative for dizziness or nystagmus to the left or to the right. ASSESSMENT/PLAN: 1. Muscle spasm - ICD9: 728.85, ICD10: M62.838 (primary diagnosis) I suspect patient's discomfort is the fact that he is not used to work in this capacity and is adjusting to work tolerance. He was unable to tolerate gabapentin due to side effects and stopped it. He also has not tolerated muscle relaxers in the past, specifically Flexeril. Seems to be very sensitive to medication. - BASIC METABOLIC PNL - MAGNESIUM BLD - CK CREATINE KINASE - CONSULT TO PHYSICAL THERAPY - Trial of Zanaflex 2 mg as needed, trial at home first due to risk of sedation. May cut tablet in half if needed. Might consider baclofen if this doesn't work. Will enroll in physical therapy for work ability strengthening. Also for neck and back issues with [facility]. 2. Type 1 diabetes, uncontrolled, with neuropathy (HCC) - ICD9: 250.63, 357.2, ICD10: E10.40, E10.65 uncontrolled - HGB A1C - BASIC METABOLIC PNL Spent considerable time educating patient on need for diabetic control and how it affects his entire life, specifically pain, nerves, muscles, renal functions etc. I'm not certain but vertigo may even be a complication of his diabetes. We discussed insulin pump and continuous glucose monitoring. Patient is interested in the latter. Advised patient needs to reschedule with endocrinology. In the meantime would like him to check blood sugars fasting and 2 hours after evening meal over the next 3 days and notify me of those. He does agree to continue lab work every 3 months until we get him controlled. He will phone in blood sugars. I will forward my comments to Dr. Ridley. Patient is referred to Angelica North NP for consideration and application of continuous glucose monitor. 3. Adjustment disorder with depressed mood - ICD9: 309.0, ICD10: F43.21 Patient is not interested this time in medication for depression. Feels he's going to have to work symptoms out. We did discuss the fact that Cymbalta might be a good choice as it might help with his muscle pain, neuritic pain and depression. 4. BPPV (benign paroxysmal positional vertigo), unspecified laterality - ICD9: 386.11, ICD10: H81.10 Unable to induce vertigo. Patient has been on medication the past without success. We'll try [facility] program and physical therapy. - CONSULT TO PHYSICAL THERAPY Follow-up as above and in 3 months with either me or Dr. Weaver. Patient (guardian) expressed understanding of instructions and agrees with plan. SHIRIN Alcala PA-C 12/14/2017 1:41 PM Signed Follow fasting and 2h PC evening meal blood sugars x 3 days and call or My Chart results. Referring Provider: SELF [[id number]] Allergies As of Date: 12/14/2017 Noted Allergy Reaction GABAPENTIN 12/14/2017 5 - Intolerance Comments: Foggy, staggering, trouble thinking Date Reviewed: 12/14/2017 Reviewed by: Christin Wagner Ma - Fully Assessed Reason for Visit: Leg Cramps [1739] Back Pain [12] Dizziness [36] Primary Visit Diagnosis:Muscle spasm [M62.838] Other Visit Diagnoses:Type 1 diabetes, uncontrolled, with neuropathy (HCC) [E10.40, E10.65] Adjustment disorder with depressed mood [F43.21] BPPV (benign paroxysmal positional vertigo), unspecified laterality [H81.10] Order(s):HGB A1C [OXARV5F] Order #: [id number] FUTURE BASIC METABOLIC PNL [SQBMP] Order #: [id number] FUTURE MAGNESIUM BLD [SQMG1] Order #: [id number] FUTURE CK CREATINE KINASE [SQCK] Order #: [id number] FUTURE oxaprozin (DAYPRO) 600 mg tabletTake 2 tablets by mouth once daily.Disp: 60 tabletRfl: 2 tiZANidine HCl (ZANAFLEX) 2 mg capsuleTake 1 capsule by mouth three times daily.Disp: 30 capsuleRfl: 1 CONSULT TO PHYSICAL THERAPY [3310] Order #: [id number]: 1 Prescriptions as of 12/14/2017 Sig: UNIFINE PENTIPS 31 GAUGE X 3/* USE TO INJECT INSULIN FIVE TI* INSULIN ASPART U-100 100 UNI* INJECT 15 UNITS SUBCUTANEOUSL* INSULIN GLARGINE (U-100) 100 * Inject 35 Units subcutaneousl* ATENOLOL 25 MG TABLET Take 1 tablet by mouth once d* ERGOCALCIFEROL (VITAMIN D2) 5* Take 1 capsule by mouth once * LANCETS Test blood sugar(s) 6 times d* BLOOD SUGAR DIAGNOSTIC STRIPS Test blood sugar(s) 6 times d* BLOOD-GLUCOSE METER KIT Glucose Meter of Choice - Kit* MAGNESIUM ORAL Take 1 tablet by mouth once d* CALCIUM 500 + D (D3) ORAL Take 1 tablet by mouth once d* DAILY VITAMIN ORAL Take 1 tablet by mouth once d* OMEGA-3 FATTY ACIDS-FISH OIL * Taking 2,000 mg daily. Patient taking differently: Taking 1,000 mg daily. OXAPROZIN 600 MG TABLET Take 2 tablets by mouth once * TIZANIDINE 2 MG CAPSULE Take 1 capsule by mouth three* Medication notes this encounter GABAPENTIN 100 MG CAPSULE >> M Dimas Bang PA-C 12/14/2017 1:04 PM felt messed up, staggering, difficulty thinking. Problem List As Of Date 12/14/2017 Noted Resolved Diabetes mellitus type 2, uncontrolled, without*INVALID FOR*07/07/2015 IMPOTENCE, ORGANIC ORIGN [N52.9] INVALID FOR* Hypoglycemia associated with diabetes (HCC) [E1*INVALID FOR*06/30/2017 Hearing loss [H91.90] INVALID FOR* Dizziness [R42] INVALID FOR*08/18/2016 Vertigo [R42] INVALID FOR* GERD (gastroesophageal reflux disease) [K21.9] INVALID FOR* Pure hyperglyceridemia [E78.1] INVALID FOR* Lesion of sciatic nerve [G57.00] INVALID FOR* Brachial neuritis or radiculitis NOS [M54.12] INVALID FOR* More... Adjustment disorder [F43.20] INVALID FOR* Dysthymia [F34.1] INVALID FOR* Type 1 diabetes, uncontrolled, with neuropathy *INVALID FOR* Tachycardia [R00.0] INVALID FOR*08/18/2016 ELIZABETH (obstructive sleep apnea) [G47.33] INVALID FOR*06/30/2017 Chest pain [R07.9] INVALID FOR*08/18/2016 Gallstones [K80.20] INVALID FOR*10/01/2016 Positive TB test [R76.11] INVALID FOR* Diabetic polyneuropathy associated with type 1 *INVALID FOR* More... Carpal tunnel syndrome, bilateral [G56.03] INVALID FOR* More... Ulnar neuropathy of left upper extremity [G56.2*INVALID FOR* Neuropathy, ulnar at elbow, left [G56.22] INVALID FOR* More... Carpal tunnel syndrome, left [G56.02] INVALID FOR* More... Other instructions from your clinician: Follow fasting and 2h PC evening meal blood sugars x 3 days and call or My Chart results. Prescriptions ordered this encounter Disp Refills Start End OXAPROZIN 600 MG TABLET 60 t* 2 12/14/2017 Route: ORAL Sig: Take 2 tablets by mouth once daily. TIZANIDINE 2 MG CAPSULE 30 c* 1 12/14/2017 Route: ORAL Sig: Take 1 capsule by mouth three times daily. Medications Discontinued During This Encounter gabapentin (NEURONTIN) 100 mg capsule 90 c* 2 06/23/2017 12/14/2017 Route: ORAL Sig: Take 1 capsule by mouth three times daily for 90 days. Disc: Side Effects Follow-up and Disposition History Recorded Letter Text [facility] [address] [id number] TO WHOM IT MAY CONCERN: This is to confirm that Sandeep Briones had an appointment and was seen at the [facility] in the Department of Family Medicine Vicki Bang PA-C on 12/14/2017. Sincerely yours, (Signed electronically to expedite mailing) Vicki Bang PA-C Encounter Status:Closed by Mina BANG PA-C on 12/14/17 ALLERGIES ALLERGIES DATE TYPE / CODE NAME / CODE REACTION SEVERITY SOURCE 06/21/2018 Drug No Known Unknown [place] Allergy/416 Allergies/[id number] [facility] 643495(SNOM 0388(RXNORM) Hospital ED CT) Repository 12/14/2017 DRUG GABAPENTIN INTOLERANCE [facility] INGREDI/[address] 856920(SNOM Repository ED CT) Drug NO KNOWN [facility] Class/29023 ALLERGIES [address] [place] 1003(SNOMED Repository CT) ENCOUNTERS ENCOUNTERS ADMIT/DISCHARGE ACCOUNT NUMBER ADMITTING ENCOUNTER LOCATION SOURCE CLASS 06/21/2018/06/21/19 [id number] Emergency [facility]ia [facility] ding:ED Repository 03/27/2018 [id number] Emergency [facility] EDRoom: System [id number]: Repository [id number] 02/27/2018/02/29/20 [id number] Ambulatory [address] [place] Repository 02/23/2018/02/25/20 [id number] Ambulatory [address] [place] Repository 02/14/2018/02/16/20 [id number] Ambulatory [address] [place] Repository 01/25/2018/01/27/20 [id number] Ambulatory [address] [place] Repository 12/30/2017/01/03/20 [id number] Ambulatory [address] [place] Repository 12/23/2017/12/27/19 [id number] Ambulatory [address] [place] Repository 12/14/2017/12/15/19 [id number] Ambulatory [address] [place] Repository 12/14/2017/12/16/19 [id number] Ambulatory [address] [place] Repository 11/30/2017 [id number] Emergency [facility] EDRoom: System [id number]: Repository [id number] 11/30/2017 [id number] Emergency [facility] ERRoom: System [id number]: Repository [id number] 11/30/2017 [id number] Emergency [facility] EDRoom: System [id number]: Repository [id number] PAYERS PAYERS ENCOUNTER GUARANTOR PAYER SUBSCRIBER SOURCE 06/21/2018 SANDEEP A Primary SANDEEP A [id number] Insurance:MARJORIE BROOKS: [id number]: Repository [id number]: [phone] [id number] [phone] (HP) Date:[id number] [address]AR: 06/21/2018 Secondary Insurance:SELF NOT GIVENUNK [place] PAY INSURANCEPolicy Community Number: Effective Hospital Date:2018-06-21 Repository 03/27/2018 [facility]ep [facility]:Workers CoffeyDOB: System W CompensationPolicy [id number] Repository [address] Number: Effective Date: [place], [place] [address]Cmz: (HP) 11/30/2017 Sandeep Primary [facility] Insurance:BuckeyePolicy CoffeyDOB: System Number: Effective Date: [id number] Repository [place], [place] [address]Acx: () 11/30/2017 Sandeep Primary [facility] Insurance:BuckeyePolicy CoffeyDOB: System Number: Effective Date: [id number] Repository [place], [place] [address]Jqy: (HP) 11/30/2017 Sandeep Primary [facility] Insurance:BuckeyePolicy CoffeyDOB: System Number: Effective Date: [id number] Repository [place], [place] [address]Ucj: ()
== END 2018-06-21 22:40 | disposition home or self-care (01) ==
PROVIDERS: Emergency Provider Emergency Medicine; Family Provider Family Medicine; PCP Family Medicine
DX: T15.12XA Foreign body in conjunctival sac, left eye, initial encounter (principal); H02.816 Retained foreign body in left eye, unspecified eyelid; X58.XXXA Exposure to other specified factors, initial encounter; Y93.89 Activity, other specified; Y92.9 Unspecified place or not applicable; Y99.9 Unspecified external cause status
CPT/HCPCS: 99283